=== PATIENT | male | born 1985 | race Caucasian/White ===

== ENCOUNTER 2025-03-22 20:00 | Day surgery (SDC) | payer BC, SELFPAY ==
[2025-03-22] VITALS (11 sets, daily range): BP systolic 113–152; BP diastolic 86–113; PULSE 88–110; RESP 16–18; TEMP 36.3–37.1; O2SAT 96–99; BMI 28.3
--- NOTE | 2025-03-22 21:00 | EX.ED.DYSGE1 ---
HPI History of Present Illness Chief Complaint: Foreign Body Informant: patient Onset/Context/Timing Onset: Hours (2.5) Context: Sudden Onset Timing: Continuous Quality: Dull Location: Mid chest Worsened by: Nothing Relieved by: Nothing Narrative Narrative: Patient presents with esophageal food impaction that occurred approximately 2 and half hours prior to arrival. Patient states he was eating a steak and felt like something got stuck. Patient states he tried drinking water with no relief. Patient states he tried drinking carbonated beverages with no improvement. Patient states everything he tries to eat he vomits back up. Patient denies any hematemesis or coffee-ground emesis. Patient denies any diarrhea, melena, or hematochezia. Patient admits to some pain in his mid chest where he thinks the food is stuck. Patient states nothing makes it better and nothing makes it worse. Patient denies any shortness of breath. Patient denies any cough. [facility] Medical History (Updated 03/22/25 @ 22:[address] Devon Saravia DO) Hypercholesterolemia Hypertension Home Medications ?Medication ?Instructions ?Recorded ?Last Taken ?Type losartan 100 mg tablet 100 mg PO DAILY 03/22/25 Unknown History rosuvastatin 5 mg tablet (Crestor) 5 mg PO DAILY 03/22/25 Unknown History Allergy/AdvReac Type Severity Reaction Status Date / Time No Known Allergies Allergy Verified 03/22/25 20:01 Surgical History (Updated 03/22/25 @ 21:[address] Devon Saravia, ) S/P anal fissurectomy Social History Smoking Status: Never smoker ROS ROS ED Constitutional Constitutional ED: Denies chills or fever(s) Eyes Eyes: Denies blurry vision or change in vision ENT ENT ED: Denies rhinorrhea or sore throat Cardiovascular Cardiovascular: Reports chest pain; Denies palpitations Respiratory/Chest Respiratory/Chest: Denies cough or dyspnea Gastrointestinal Gastrointestinal: Reports nausea and vomiting Genitourinary Genitourinary ED: Denies dysuria or hematuria Musculoskeletal Musculoskeletal: Denies back pain or neck pain Integumentary Denies abscess or rash Neurologic Neurologic: Denies headache(s) or weakness Allergic/Immunologic Allergic/Immunologic ED: Denies mouth swelling or urticaria EXAM Physical Exam Const Vital Signs: 03/22/25 20:01 03/22/25 20:01 03/22/25 20:20 Temperature 97.4 F L Temperature Source Temporal Pulse Rate 91 88 Respiratory Rate 18 18 Respiratory Effort Normal Respiratory Pattern Normal Blood Pressure 152/100 H Blood Pressure Mean 117 Pulse Ox 99 99 Oxygen Delivery Method Room Air 03/22/25 21:28 Temperature Temperature Source Pulse Rate 89 Respiratory Rate 18 Respiratory Effort Respiratory Pattern Blood Pressure Blood Pressure Mean Pulse Ox 98 Oxygen Delivery Method Room Air Positive well nourished and well developed General Appearance ED: well developed and NAD HEENT Reports moist mucous membranes Neck supple and no JVD Resp normal respiratory effort and clear to auscultation bilaterally Cardio regular rate and regular rhythm GI non-tender and non-distended Palpation: soft Neuro oriented x3, CN's II-XII intact bilaterally and no sensory deficits noted Sensorium / Orientation: alert Motor Exam: strength 5/5 throughout Psych mental status grossly normal MDM MDM MDM Narrative Medical decision making narrative: Patient was given an injection of glucagon. Treatment and Re-Evaluation :: Patient had no improvement with glucagon. Case was discussed with Dr. Chavez. He will be in to evaluate the patient take the patient for endoscopy. Patient and family understood and were agreeable with the plan. All questions were answered. Discharge Plan Triage Chief Complaint: Foreign Body ED Provider: Devon Saravia Dx/Rx/DC Orders Clinical Impression: Esophageal obstruction due to food impaction, Hypertension Prescriptions: No Action losartan 100 mg tablet 100 mg PO DAILY rosuvastatin [Crestor] 5 mg tablet 5 mg PO DAILY Primary Care Provider: Farshad Garrett Referrals: Farshad Garrett MD [Primary Care Provider] - Print Language: [place]i
--- OUTSIDE RECORDS SUMMARY | 2025-03-22 21:16 | XMS RPT_ITS | CCD ---
Author Organization [facility] Inform ion Partnership [facility] Care Team Providers Care Feed Inspection Supervisor Name Role Phone ZHANNA FLOR Unavailable Unavailable ZHANNA FLOR Unavailable Unavailable Tami CORADO, Dr. Yen Primary Care Provider Tami CORADO, Dr. Yen Attending Provider [phone] Tami CORADO, Dr. Yen Referring Provider [phone] Farshad Garrett Attending Unavailable Farshad Garrett Primary Care Unavailable Farshad Garrett Referring Unavailable Farshad Garrett Attending Unavailable Farshad Garrett Primary Care Unavailable Problems Problem Classification Problem Date Documented Da te Episodic/Chronic Essential hypertension (1 source) Essential (primary) hypertension; Translations: [Essential (primary) hypertension] Onset: 03-10-2025 Chronic Unclassified (1 source) Unknown / UNK(Unknown) Onset: 08-15-2017 Results Test Name Value Interpretation Reference Range Facility Anion gap in Serum or Plasma Ordered By: Farshad Garrett on 03-05-2025 Anion gap [Moles/Vol] 14 mmol/L 5-15 [facility] BUN/creatinine ratioOrdered By: Farshad Garrett on 03-05-2025 Urea nitrogen/Creatinine [Mass ratio] 10.4 mg/mg 10- [facility] Bilirubin, totalOrdered By: Farshad Garrett on 03-05-2025 Bilirubin [Mass/Vol] 0.86 mg/dL 0.00-1.30 [facility] Calculated very low density lipoprotein (VLDL) cholesterol measurementOrdered By: Farshad Garrett on 03-05-2025 Calculated very low density lipoprotein (VLDL) cholesterol measurement 12 mg/dL -40 [facility] Carbon dioxide, total [Moles /volume] in Central venous bloodOrdered By: Farshad Garrett on 03-05-2025 CO2 [Moles/Vol] 22.9 mmol/L 21.0-32.0 [facility] Chloride assayOrdered By: Jori Garrett on 03-05-2025 Chloride [Moles/Vol] 102 mmol/L 98-108 [facility] Comprehensive Metabolic Prof ilon 03-05-2025 Albumin [Mass/Vol] 4.9 g/dL Normal 3.5-5.0 [facility] Comment on above: Performed By: #### L 500.4100, L500.4050 #### [facility] [address] [place], [address] Albumin/Globulin [Mass ratio] 1.8 {ratio} Normal 0.9-2.4 [facility] Comment on above: Performed By: #### L 500.4100, L500.4050 #### [facility] [address] [place], [address] ALK PHOS 55 U/L Normal 40-129 [facility] Comment on above: Performed By: #### L 500.4100, L500.4050 #### [facility] [address] [place], [address] ALT [Catalytic activity/Vol] 59 U/L High <=46 [facility] Comment on above: Performed By: #### L 500.4100, L500.4050 #### [facility] [address] [place], [address] AST [Catalytic activity/Vol] 55 U/L High <=37 [facility] Comment on above: Performed By: #### L 500.4100, L500.4050 #### [facility] [address] [place], [address] Bilirubin [Mass/Vol] 0.86 mg/dL Normal 0.00-1.30 [facility] Comment on above: Performed By: #### L 500.4100, L500.4050 #### [facility] [address] [place], [address] BUN/CRE 10.4 RATIO Normal 10-20 [facility] Comment on above: Performed By: #### L 500.4100, [id number] #### [facility] [address] [place], [address] Calcium [Mass/Vol] 9.7 mg/dL Normal 7.6-11.0 [facility] Comment on above: Performed By: #### L 500.4100, [id number] #### [facility] [address] [place], [address] Chloride [Moles/Vol] 102 mmol/L Normal 98-108 [facility] Comment on above: Performed By: #### L 500.4100, [id number] #### [facility] [address] [place], [address] CO2 [Moles/Vol] 22.9 mmol/L Normal 21.0-32.0 [facility] Comment on above: Performed By: #### L 500.4100, [id number] #### [facility] [address] [place], [address] Creatinine [Mass/Vol] 0.79 mg/dL Normal 0.70-1.20 [facility] Comment on above: Performed By: #### L 500.4100, [id number] #### [facility] [address] [place], [address] GAP 14 Normal 5-15 [facility] Comment on above: Performed By: #### L 500.4100, [id number] #### [facility] [address] [place], [address] GFR/1.73 sq M.predicted among non-blacks MDRD (S/P/Bld) [Vol rate/Area] 114 mL/min/{1.73_m2} Normal >60 [facility] Comment on above: Result Comment: mL/m in/1.73m2 CKD-EPI Creatinine Equation (2020) Performed By: #### L 500.4100, L500.4050 #### [facility] [address] [place], [address] Globulin (S) [Mass/Vol] 2.7 g/dL Normal 2.2-4.2 [facility] Comment on above: Performed By: #### L 500.4100, [id number] #### [facility] [address] [place], [address] Glucose [Mass/Vol] 99 mg/dL Normal 70-99 [facility] Comment on above: Performed By: #### L 500.4100, [id number] #### [facility] [address] [place], [address] Potassium [Moles/Vol] 4.5 mmol/L Normal 3.3-5.1 [facility] Comment on above: Performed By: #### L 500.4100, [id number] #### [facility] [address] [place], [address] Sodium [Moles/Vol] 138 mmol/L Normal 133-145 [facility] Comment on above: Performed By: #### L 500.4100, [id number] #### [facility] [address] [place], [address] T PROT 7.6 g/dL Normal 5.9-8.4 [facility] Comment on above: Performed By: #### L 500.4100, [id number] #### [facility] [address] [place], [address] Urea nitrogen [Mass/Vol] 8 mg/dL Normal 4-19 [facility] Comment on above: Performed By: #### L 500.4100, L500.4050 #### [facility] [address] [place], [address] Glomerular filtration rate ( GFR) estimation/1.73 sq m using serum, plasma, or whole bOrdered By: Farshad Garrett on 03-05-2025 GFR/1.73 sq M.predicted among non-blacks MDRD (S/P/Bld) [Vol rate/Area] 114 mL/min/{1.73_m2} >60 [facility] Comment on above: mL/min/1.73m2 CKD-EP I Creatinine Equation (2020) LDL calc ser/plasOrdered By: Farshad Garrett on 03-05-2025 Cholesterol in LDL [Mass/Vol] 100 mg/dL [facility] Comment on above: Plyexavady=949-868 m g/dL & Higher Zoem=640 mg/dL or greater Laboratory - Chemistry and C hemistry - challengeOrdered By: Farshad Garrett on 03-05-2025 AST [Catalytic activity/Vol] 55 U/L High <38 [facility] Lipid Profileon 03-05-2025 CHOL:HDL 2.46 Normal [facility] Comment on above: Performed By: #### L 500.4100, L500.4050 #### [facility] [address] [place], [place], [address] Cholesterol [Mass/Vol] 188 mg/dL Normal <=200 [facility] Comment on above: Result Comment: Chol esterol level, Desirable <200 mg/dL Borderline high cholesterol 200-239 mg/dL High cholesterol >=240 mg/dL Recommendations of the NCEP Adult Treatment Panel for the following risk-cutoff thresholds for the [place] population. Performed By: #### L 500.4100, L500.4050 #### [facility] [address] [place], [address] Cholesterol in HDL [Mass/Vol] 76 mg/dL Normal [facility] Comment on above: Result Comment: Neda onal Cholesterol Education Program (NCEP) guidelines: <40 mg/dL: Low HDL-cholesterol (major risk factor for CHD) >= 60 mg/dL: High HDL-cholesterol (negative risk factor for CHD) HDL-cholesterol is affected by a number of factors, e.g. smoking, exercise, hormones, sex and age. Performed By: #### L 500.4100, L500.4050 #### [facility] [address] [place], [address] Cholesterol in LDL [Mass/Vol] 100 mg/dL Normal [facility] Comment on above: Result Comment: Bord vialmg=151-484 mg/dL Higher Yhch=119 mg/dL or greater Performed By: #### L 500.4100, L500.4050 #### [facility] [address] [place], [address] Cholesterol in VLDL [Mass/Vol] 12 mg/dL Normal 5-40 [facility] Comment on above: Performed By: #### L 500.4100, L500.4050 #### [facility] [address] [place], [address] Triglyceride [Mass/Vol] 60 mg/dL Normal [facility] Comment on above: Result Comment: The drugs N-Acetylcysteine and Metamizole may falsely depress this assay. Normal range: <150 mg/dL Borderline High: 150-199 mg/dL High: 200-499 mg/dL Very High: >500 mg/dL Performed By: #### L 500.4100, L500.4050 #### [facility] [address] [place], [address] Potassium measurement (mass/ volume)Ordered By: Farshad Garrett on 03-05-2025 Potassium (Unsp spec) [Mass/Vol] 4.5 mmol/L 3.3-5.1 [facility] Screening total cholesterol/ high density lipoprotein (HDL) cholesterol ratioOrdered By: Farshad Garrett on 03-05-2025 Cholesterol.total/Chol esterol in HDL [Mass ratio] 2.46 {ratio} [facility] Serum creatinine measurement (mass/volume)Ordered By: Farshad Garrett on 03-05-2025 Creatinine [Mass/Vol] 0.79 mg/dL 0.70-1.20 [facility] Serum globulin measurementOr dered By: Farshad Garrett on 03-05-2025 Globulin (S) [Mass/Vol] 2.7 g/dL 2.2-4.2 [facility] Serum glucose measurement (m ass/volume)Ordered By: Farshad Garrett on 03-05-2025 Glucose [Mass/Vol] 99 mg/dL 70-99 [facility] Serum or plasma alanine mirza otransferase (ALT) measurementOrdered By: Farshad Garrett on 03-05-2025 ALT [Catalytic activity/Vol] 59 U/L High <47 [facility] Serum or plasma albumin tatyana urement (mass/volume)Ordered By: Farshad Garrett on 03-05-2025 Albumin [Mass/Vol] 4.9 g/dL 3.5-5.0 [facility] Serum or plasma albumin/glob ulin mass ratioOrdered By: Farshad Garrett on 03-05-2025 Albumin/Globulin [Mass ratio] 1.8 {ratio} 0.9-2.4 [facility] Serum or plasma alkaline fernando sphatase measurementOrdered By: Farshad Garrett on 03-05-2025 ALP [Catalytic activity/Vol] 55 U/L 40-129 [facility] Serum or plasma calcium tatyana urement (mass/volume)Ordered By: Farshad Garrett on 03-05-2025 Calcium [Mass/Vol] 9.7 mg/dL 7.6-11.0 [facility] Serum or plasma cholesterol in HDL measurement (mass/volume)Ordered By: Farshad Garrett on 03-05-2025 Cholesterol in HDL [Mass/Vol] 76 mg/dL >40 [facility] Comment on above: National Cholesterol Education Program (NCEP) guidelines:<40 mg/dL: Low HDL-cholesterol (major risk factor for CHD)>= 60 mg/dL: High HDL-cholesterol (negative risk factor for CHD)HDL-cholesterol is affected by a number of factors, e.g. smoking, exercise, hormones, sex and age. Serum or plasma cholesterol measurement (mass/volume)Ordered By: Farshad Garrett on 03-05-2025 Cholesterol [Mass/Vol] 188 mg/dL <201 [facility] Comment on above: Cholesterol level, D esirable <200 mg/dLBorderline high cholesterol 200-239 mg/dLHigh cholesterol >=240 mg/dLRecommendations of the NCEP Adult Treatment Panel for the following risk-cutoff thresholds for the [place] population. Serum or plasma urea nitroge n measurement (mass/volume)Ordered By: Farshad Garrett on 03-05-2025 Urea nitrogen [Mass/Vol] 8 mg/dL 4-19 [facility] Sodium levelOrdered By: Farshad Garrett on 03-05-2025 Sodium [Moles/Vol] 138 mmol/L 133-145 [facility] Total proteinOrdered By: Jacklyn Garrett on 03-05-2025 Protein [Mass/Vol] 7.6 g/dL 5.9-8.4 [facility] Triglycerides measurementOrd ered By: Farshad aGrrett on 03-05-2025 Triglyceride [Mass/Vol] 60 mg/dL <199 [facility] Comment on above: The drugs N-Acetylcy steine and Metamizole may falsely depress this assay. Normal range: <150 mg/dLBorderline High: 150-199 mg/dLHigh: 200-499 mg/dLVery High: >500 mg/dL Comprehensive Metabolic Prof ilon 08-25-2024 Albumin [Mass/Vol] 4.0 g/dL Normal 3.2-5.0 [facility] Comment on above: Performed By: #### L 500.4100, L500.4050 #### [facility] [address] [place], [address] Albumin/Globulin [Mass ratio] 1.1 {ratio} Normal 0.9-2.4 [facility] Comment on above: Performed By: #### L 500.4100, L500.4050 #### [facility] [address] [facility] [place], [address] ALK P 63 U/L Normal 45-117 [facility] Comment on above: Performed By: #### L 500.4100, L500.4050 #### [facility] [address] [facility] [place], [address] ALT [Catalytic activity/Vol] 62 U/L High 16-61 [facility] Comment on above: Performed By: #### L 500.4100, L500.4050 #### [facility] [address] [place], [address] AST [Catalytic activity/Vol] 57 U/L High 15-37 [facility] Comment on above: Performed By: #### L 500.4100, L500.4050 #### [facility] [address] [place], [address] Bilirubin [Mass/Vol] 0.60 mg/dL Normal 0.20-1.00 [facility] Comment on above: Result Comment: For patients on eltrombopag therapy, use of [place] TBIL is not recommended. Performed By: #### L 500.4100, L500.4050 #### [facility] [address] [place], [address] BUN/CRE 10.7 RATIO Normal 10-20 [facility] Comment on above: Performed By: #### L 500.4100, L500.4050 #### [facility] [address] [place], [address] CA,Total 9.0 mg/dL Normal 8.5-10.1 [facility] Comment on above: Performed By: #### L 500.4100, L500.4050 #### [facility] [address] [place], [address] Chloride [Moles/Vol] 106 mmol/L Normal 98-107 [facility] Comment on above: Performed By: #### L 500.4100, L500.4050 #### [facility] [address] [place], [address] CO2 [Moles/Vol] 26.0 mmol/L Normal 21.0-32.0 [facility] Comment on above: Performed By: #### L 500.4100, L500.4050 #### [facility] [address] [place], [address] Creatinine [Mass/Vol] 0.93 mg/dL Normal 0.70-1.30 [facility] Comment on above: Result Comment: The validity of the calculated GFR GFRAA in patients over 70 years has not been determined. Clinical correlation is essential. Performed By: #### L 500.4100, L500.4050 #### [facility] [address] [place], [address] EST GFR - AA 115 mL/min Normal >60 [facility] Comment on above: Result Comment: Afri can Lebanese GFR Calc Performed By: #### L 500.4100, L500.4050 #### [facility] [address] [place], [address] GAP 5 Normal 5-15 [facility] Comment on above: Performed By: #### L 500.4100, L500.4050 #### [facility] [address] [place], [address] GFR/1.73 sq M.predicted among non-blacks MDRD (S/P/Bld) [Vol rate/Area] 95 mL/min/{1.73_m2} Normal >60 [facility] Comment on above: Result Comment: Non- GFR Calc Performed By: #### L 500.4100, L500.4050 #### [facility] [address] [place], [address] Globulin (S) [Mass/Vol] 3.6 g/dL Normal 2.2-4.2 [facility] Comment on above: Performed By: #### L 500.4100, L500.4050 #### [facility] [address] [place], [address] Glucose [Mass/Vol] 98 mg/dL Normal 74-106 [facility] Comment on above: Performed By: #### L 500.4100, L500.4050 #### [facility] [address] [place], [address] Potassium [Moles/Vol] 4.2 mmol/L Normal 3.5-5.1 [facility] Comment on above: Performed By: #### L 500.4100, L500.4050 #### [facility] [address] [place], [address] Sodium [Moles/Vol] 138 mmol/L Normal 136-145 [facility] Comment on above: Performed By: #### L 500.4100, L500.4050 #### [facility] [address] [place], [address] T PROT 7.6 g/dL Normal 6.4-8.2 [facility] Comment on above: Performed By: #### L 500.4100, L500.4050 #### [facility] [address] [place], [address] Urea nitrogen [Mass/Vol] 10 mg/dL Normal 04-24 [facility] Comment on above: Performed By: #### L 500.4100, L500.4050 #### [facility] [address] [place], [address] Lipid Profileon 08-25-2024 Cholesterol [Mass/Vol] 183 mg/dL Normal 200 [facility] Comment on above: Result Comment: <200 mg/dL Desirable 200-240 mg/dL Borderline >240 mg/dL High Risk Performed By: #### L 500.4100, L500.4050 #### [facility] [address] [place], [address] Cholesterol in HDL [Mass/Vol] 60 mg/dL Normal [facility] Comment on above: Result Comment: The drugs N-Acetylcysteine and Metamizole may falsely depress this assay. Reference Range HDL <40 mg/dL Low HDL Cholesterol HDL >or= 60 mg/dL High HDL Cholesterol Performed By: #### L 500.4100, L500.4050 #### [facility] [address] [place], [address] Cholesterol in LDL [Mass/Vol] 55 mg/dL Normal 0-130 [facility] Comment on above: Performed By: #### L 500.4100, L500.4050 #### [facility] [address] [place], [address] Cholesterol in VLDL [Mass/Vol] 68 mg/dL High 5-40 [facility] Comment on above: Performed By: #### L 500.4100, L500.4050 #### [facility] [address] [place], [address] Triglyceride [Mass/Vol] 340 mg/dL High [facility] Comment on above: Result Comment: The drugs N-Acetylcysteine and Metamizole may falsely depress this assay. Serum Triglycerides Reference Interval Normal <150 mg/dL Borderline high 150 - 199 mg/dL High 200 - 499 mg/dL Very High > or = 500 mg/dL Performed By: #### L 500.4100, L500.4050 #### [facility] [address] [place], [address] Basophil percentageOrdered B y: Farshad Garrett on 11-02-2023 Chloride [Moles/Vol] 106 mmol/L 98-107 [facility] Cholesterol [Mass/Vol] 249 mg/dL <200 [facility] Comment on above: <200 mg/dL Desirable 200-240 mg/dL Borderline >240 mg/dL High Risk Glucose [Mass/Vol] 98 mg/dL 74-106 [facility] Potassium [Moles/Vol] 4.5 mmol/L 3.5-5.1 [facility] Sodium [Moles/Vol] 139 mmol/L 136-145 [facility] Triglyceride [Mass/Vol] 155 mg/dL <199 [facility] Comment on above: The drugs N-Acetylcy steine and Metamizole may falsely depress this assay.Serum Triglycerides Reference Interval Normal <150 mg/dL Borderline high 150 - 199 mg/dL High 200 - 499 mg/dL Very High > or = 500 mg/dL High density lipoprotein (HD L) measurementOrdered By: Farshad Garrett on 11-02-2023 Cholesterol in HDL (Body fld) [Mass/Vol] 63 mg/dL >40 [facility] Comment on above: The drugs N-Acetylcy steine and Metamizole may falsely depress this assay. Reference Range HDL <40 mg/dL Low HDL Cholesterol HDL >or= 60 mg/dL High HDL Cholesterol Laboratory - Chemistry and C hemistry - challengeOrdered By: Farhsad Garrett on 11-02-2023 CO2 [Moles/Vol] 26.0 mmol/L 21.0-32.0 [facility] Urea nitrogen/Creatinine [Mass ratio] 8.1 mg/mg 10-20 [facility] Low density lipoprotein (LDL ) cholesterol measurementOrdered By: Farshad Garrett on 11-02-2023 Cholesterol in LDL (Body fld) [Moles/Vol] 155 mg/dL 0-130 [facility] No Panel InformationOrdered By: Farshad Garrett on 11-02-2023 Estimated GFR (MDRD) Amer 125 mL/min >60 [facility] Comment on above: GFR Calc Estimated GFR (MDRD) Non-Af Amer 103 mL/min >60 [facility] Comment on above: Non- GFR Calc Serum or plasma calcium tatyana urement (mass/volume)Ordered By: Farshad Garrett on 11-02-2023 Calcium [Mass/Vol] 9.2 mg/dL 8.5-10.1 [facility] Serum or plasma creatinine m easurement (mass/volume)Ordered By: Farshad Garrett on 11-02-2023 Creatinine [Mass/Vol] 0.87 mg/dL 0.70-1.30 [facility] Comment on above: The validity of the calculated GFR & GFRAA in patients over 70 years has not been determined. Clinical correlation is essential. Serum or plasma urea nitroge n measurement (mass/volume)Ordered By: Farshad Garrett on 11-02-2023 Urea nitrogen [Mass/Vol] 7 mg/dL 7-18 [facility] Thin prep Papanicolaou smear with manual screeningOrdered By: Farshad Garrett on 11-02-2023 Thin prep Papanicolaou smear with manual screening 7 5-15 [facility] Very low density lipoprotein (VLDL) cholesterol measurementOrdered By: Farshad Garrett on 11-02-2023 Cholesterol in VLDL Calc [Moles/Vol] 31 mg/dL 5-40 [facility] Basophil percentageOrdered B y: Dr. Garrett on 12-27-2022 Chloride [Moles/Vol] 103 mmol/L 98-107 [facility] Cholesterol [Mass/Vol] 222 mg/dL <200 [facility] Comment on above: <200 mg/dL Desirable 200-240 mg/dL Borderline >240 mg/dL High Risk Glucose [Mass/Vol] 110 mg/dL 74-106 [facility] Comment on above: Fasting Glucose resu lt from 100 to 125 mg/dL suggests IMPAIRED HOMEOSTASIS per A.D.A. criteria. Potassium [Moles/Vol] 4.6 mmol/L 3.5-5.1 [facility] Sodium [Moles/Vol] 139 mmol/L 136-145 [facility] Triglyceride [Mass/Vol] 197 mg/dL <199 [facility] Comment on above: The drugs N-Acetylcy steine and Metamizole may falsely depress this assay.Serum Triglycerides Reference Interval Normal <150 mg/dL Borderline high 150 - 199 mg/dL High 200 - 499 mg/dL Very High > or = 500 mg/dL Laboratory - Chemistry and C hemistry - challengeOrdered By: Dr. Garrett on 12-27-2022 CO2 [Moles/Vol] 28.0 mmol/L 21.0-32.0 [facility] Urea nitrogen/Creatinine [Mass ratio] 8.9 mg/mg 10-20 [facility] No Panel InformationOrdered By: Dr. Garrett on 12-27-2022 Estimated GFR (MDRD) Amer 105 mL/min >60 [facility] Comment on above: GFR Calc Estimated GFR (MDRD) Non-Af Amer 87 mL/min >60 [facility] Comment on above: Non- GFR Calc Serum or plasma calcium tatyana urement (mass/volume)Ordered By: Dr. Garrett on 12-27-2022 Calcium [Mass/Vol] 9.3 mg/dL 8.5-10.1 [facility] Serum or plasma cholesterol in HDL measurement (mass/volume)Ordered By: Dr. Garrett on 12-27-2022 Cholesterol in HDL [Mass/Vol] 49 mg/dL >40 [facility] Comment on above: The drugs N-Acetylcy steine and Metamizole may falsely depress this assay. Reference Range HDL <40 mg/dL Low HDL Cholesterol HDL >or= 60 mg/dL High HDL Cholesterol Serum or plasma cholesterol in VLDL measurement (mass/volume)Ordered By: Dr. Garrett on 12-27-2022 Cholesterol in VLDL [Mass/Vol] 39 mg/dL 5-40 [facility] Serum or plasma creatinine m easurement (mass/volume)Ordered By: Dr. Garrett on 12-27-2022 Creatinine [Mass/Vol] 1.01 mg/dL 0.70-1.30 [facility] Comment on above: The validity of the calculated GFR & GFRAA in patients over 70 years has not been determined. Clinical correlation is essential. Serum or plasma low density lipoprotein (LDL) cholesterol measurement (mass/volume)Ordered By: Dr. Garrett on 12-27-2022 Cholesterol in LDL [Mass/Vol] 134 mg/dL 0-130 [facility] Serum or plasma urea nitroge n measurement (mass/volume)Ordered By: Dr. Garrett on 12-27-2022 Urea nitrogen [Mass/Vol] 9 mg/dL 7-18 [facility] Thin prep Papanicolaou smear with manual screeningOrdered By: Dr. Garrett on 12-27-2022 Thin prep Papanicolaou smear with manual screening 8 5-15 [facility] Basophil percentageon 2021 Chloride [Moles/Vol] 100 mmol/L 98-107 [facility] Work Phone: Cholesterol [Mass/Vol] 228 mg/dL <200 [facility] Work Phone: Comment on above: <200 mg/dL Desirable 200-240 mg/dL Borderline >240 mg/dL High Risk Glucose [Mass/Vol] 105 mg/dL 74-106 [facility] Work Phone: Comment on above: Fasting Glucose resu lt from 100 to 125 mg/dL suggests IMPAIRED HOMEOSTASIS per A.D.A. criteria. Potassium [Moles/Vol] 4.6 mmol/L 3.5-5.1 [facility] Work Phone: Sodium [Moles/Vol] 133 mmol/L 136-145 [facility] Work Phone: [phone] Triglyceride [Mass/Vol] 207 mg/dL [facility] Work Phone: [phone] Comment on above: The drugs N-Acetylcy steine and Metamizole may falsely depress this assay.Serum Triglycerides Reference Interval Normal <150 mg/dL Borderline high 150 - 199 mg/dL High 200 - 499 mg/dL Very High > or = 500 mg/dL Laboratory - Chemistry and C hemistry - challengeon 01-23-2022 CO2 [Moles/Vol] 28.0 mmol/L 21.0-32.0 [facility] Work Phone: [phone] Urea nitrogen/Creatinine [Mass ratio] 11.4 mg/mg 10-20 [facility] Work Phone: [phone] Panel Informationon 01-23 Estimated GFR (MDRD) Amer 101 mL/min >60 [facility] Work Phone: [phone] Comment on above: GFR Calc Estimated GFR (MDRD) Non-Af Amer 84 mL/min >60 [facility] Work Phone: [phone] Comment on above: Non- GFR Calc Serum or plasma calcium tatyana urement (mass/volume)on 01-23-2022 Calcium [Mass/Vol] 8.9 mg/dL 8.5-10.1 [facility] Work Phone: [phone] Serum or plasma cholesterol in HDL measurement (mass/volume)on 01-23-2022 Cholesterol in HDL [Mass/Vol] 54 mg/dL [facility] Work Phone: [phone] Comment on above: The drugs N-Acetylcy steine and Metamizole may falsely depress this assay. Reference Range HDL <40 mg/dL Low HDL Cholesterol HDL >or= 60 mg/dL High HDL Cholesterol Serum or plasma cholesterol in VLDL measurement (mass/volume)on 01-23-2022 Cholesterol in VLDL [Mass/Vol] 41 mg/dL 5-40 [facility] Work Phone: [phone] Serum or plasma creatinine m easurement (mass/volume)on 01-23-2022 Creatinine [Mass/Vol] 1.05 mg/dL 0.70-1.30 [facility] Work Phone: Comment on above: The validity of the calculated GFR & GFRAA in patients over 70 years has not been determined. Clinical correlation is essential. Serum or plasma low density lipoprotein (LDL) cholesterol measurement (mass/volume)on 01-23-2022 Cholesterol in LDL [Mass/Vol] 133 mg/dL 0-130 [facility] Work Phone: Serum or plasma urea nitroge n measurement (mass/volume)on 01-23-2022 Urea nitrogen [Mass/Vol] 12 mg/dL 7-18 [facility] Work Phone: Thin prep Papanicolaou smear with manual screeningon 01-23-2022 Thin prep Papanicolaou smear with manual screening 5 5-15 [facility] Work Phone: CNPNon 06-15-2021 CNPN Telephone ([facility]) RUSTY CUEVA ([id number]) 1985 M Date Time Provider Department 06/15/21 ABIGAIL JOE [facility] During your visit today, we recorded the following information about you: Marcel Oviedo 06/15/2021 11:55 AM Signed Medical record request received from [facility]. Request given to [facility] to fax to [facility]. Allergies As of Date: 06/15/2021 Noted Allergy Reaction RAGWEED POLLEN 11/19/2017 9 - Itching Date Reviewed: 2021 Reviewed by: Nery Rosas Ma - Fully Assessed Reason for Visit: Release Of Medical Records [2017] Prescriptions as of 06/15/2021 - lisinopril (ZESTRIL, PRINIVIL) 20 mg tablet Take 1 tablet by mouth once daily. - docusate sodium (COLACE) 100 mg capsule Take 1 capsule by mouth twice daily. - Ibuprofen 200 mg cap Take 1-2 capsules by mouth every 4 hours as needed (for pain). Problem List As Of Date 06/15/2021 Noted Resolved BMI 27.0-27.9,adult [Z68.27] 01/01/2017 Elevated BP without diagnosis of hypertension [*01/01/2017 08/20/2018 Abnormal PFTs [R94.2] 07/23/2017 03/04/2019 Impaired fasting glucose [R73.01] 07/23/2017 03/04/2019 Essential hypertension [I10] 01/21/2018 Nasal septal deviation [J34.2] Migraine without aura and without status migrai*03/04/2019 Anal fissure [K60.2] 03/02/2020 04/20/2020 Rectal bleeding [K62.5] 03/02/2020 04/20/2020 Former smoker [Z87.891] 03/15/2020 Perirectal abscess [K61.1] 04/13/2020 04/20/2020 Anal abscess [K61.0] 04/13/2020 04/20/2020 Encounter Status:Closed by MARCEL OVIEDO on 06/15/21 [facility] OBSOLETEon 04-03-2021 OBSOLETE Refill ([facility]) RUSTY CUEVA ([id number]) 1985 M Date Time Provider Department 04/03/21 ABIGAIL JOE [facility] During your visit today, we recorded the following information about you: Audrey Galvez Ma 04/04/2021 9:14 AM Signed last ov 03/08/20 Tarah Ramirez APRN.CNP 04/04/2021 9:23 AM Signed Please ask the patient to complete fasting labs and schedule an in office appt. Thanks, Peyton Patient's request for medication has been refused. See reason and notify patient. Refused Prescriptions Disp Refills lisinopril (ZESTRIL, PRINIVIL) 20 mg tablet [Pharmacy Med Name: LISINOPRIL 20 MG TABLET] 90 tablet 1 Sig: TAKE 1 TABLET BY MOUTH EVERY DAY ISSAC: No Refused By: TARAH RAMIREZ Reason for Refusal: A Refill not appropriate Cindy Poe RN 04/04/2021 3:00 PM Signed Called and left VM at [phone] for patient to call back the office. Please relay message below when patient calls back. Qi Langley 04/05/2021 9:33 AM Signed Patient returned call stating he has moved to [place]. Patient states he is going to find a new provider in that area, but is asking if he could get one last refill while he is looking. Please advise. Abigail Joe MD 04/05/2021 2:56 PM Signed Notify patient refill sent-he needs updated lab testing as well (orders were placed yesterday). Last 3 Encounter BP Readings: Date: BP: 2021 122/72 04/20/2020 137/88 04/13/2020 103/63 The following approved medication requests have been transmitted electronically. Signed Prescriptions Disp Refills lisinopril (ZESTRIL, PRINIVIL) 20 mg tablet 90 tablet 0 Sig: Take 1 tablet by mouth once daily. ISSAC: No Authorizing Provider: ABIGAIL JOE Refused Prescriptions Disp Refills lisinopril (ZESTRIL, PRINIVIL) 20 mg tablet [Pharmacy Med Name: LISINOPRIL 20 MG TABLET] 90 tablet 1 Sig: TAKE 1 TABLET BY MOUTH EVERY DAY ISSAC: No Refused By: TARAH RAMIREZ Reason for Refusal: A Refill not appropriate MD Abigail Shrestha MD 04/05/2021 2:56 PM Signed Addended by: ABIGAIL JOE on: 04/05/2021 02:56 PM Modules accepted: Orders Marcel Oviedo 04/06/2021 5:01 PM Signed Left detailed message on VM to notify patient. Advised patient to call the office with any further questions. Allergies As of Date: 04/03/2021 Noted Allergy Reaction RAGWEED POLLEN 11/19/2017 9 - Itching Date Reviewed: 2021 Reviewed by: Nery Rosas Ma - Fully Assessed Reason for Visit: Refill Request [94] Primary Visit Diagnosis:Essential hypertension [I10] Other Visit Diagnoses:Mixed hyperlipidemia [E78.2] Preventative health care [Z00.00] Order(s):BASIC METABOLIC PNL [SQBMP] Order #: [id number] FUTURE LIPID PANEL BASIC [SQLIPB] Order #: [id number] FUTURE lisinopril (ZESTRIL, PRINIVIL) 20 mg tabletTake 1 tablet by mouth once daily.Disp: 90 tabletRfl: 0 Prescriptions as of 04/03/2021 Sig: LISINOPRIL 20 MG TABLET Take 1 tablet by mouth once d* DOCUSATE SODIUM 100 MG CAPSULE Take 1 capsule by mouth twice* Patient not taking: Reported on 2021 IBUPROFEN 200 MG CAPSULE Take 1-2 capsules by mouth ev* Problem List As Of Date 04/03/2021 Noted Resolved BMI 27.0-27.9,adult [Z68.27] 01/01/2017 Elevated BP without diagnosis of hypertension [*01/01/2017 08/20/2018 Abnormal PFTs [R94.2] 07/23/2017 03/04/2019 Impaired fasting glucose [R73.01] 07/23/2017 03/04/2019 Essential hypertension [I10] 01/21/2018 Nasal septal deviation [J34.2] Migraine without aura and without status migrai*03/04/2019 Anal fissure [K60.2] 03/02/2020 04/20/2020 Rectal bleeding [K62.5] 03/02/2020 04/20/2020 Former smoker [Z87.891] 03/15/2020 Perirectal abscess [K61.1] 04/13/2020 04/20/2020 Anal abscess [K61.0] 04/13/2020 04/20/2020 Prescriptions ordered this encounter Disp Refills Start End LISINOPRIL 20 MG TABLET 90 t* 0 04/05/2021 Route: ORAL Sig: Take 1 tablet by mouth once daily. Medications Discontinued During This Encounter Prescriptions - lisinopril (ZESTRIL, PRINIVIL) 20 mg tablet (Discontinued) Take 1 tablet by mouth once daily. Encounter Status:Closed by TARAH RAMIREZ on 04/04/21 Normal [facility] CNOVon 2021 CNOV Office Visit ([facility] ) RUSTY CUEVA ([id number]) 1985 [place] Date Time Provider Department 03/18/21 8:45 AM ALLA GASTELUM [facility] During your visit today, we recorded the following information about you: Temperature Pulse Respiration Blood pressure 96.9 degrees 80/minute 16/minute 122/72 Weight 93.9 kg Alla Gastelum APRN.SENIOR PHYSICIAN 2021 9:12 AM Signed Subjective The history is provided by the patient. No sign language translator was used. HPI Rusty Cueva is a 36 year old male who presents today for CC of sore throat that started in the past 24 hours. He denies any fever, chills, headache, body aches, nasal congestion, rhinorrhea, loss of smell or taste, no nausea, vomiting or diarrhea. He is fully vaccinated. No known exposure to strep or covid. BP 122/72 Pulse 80 Temp 36.1 ?C (96.9 ?F) (Tympanic) Resp 16 Wt 93.9 kg (207 lb) SpO2 96% BMI 28.87 kg/m? Social History Tobacco Use - Smoking status: Former Smoker Packs/day: 1.00 Years: 13.00 Pack years: 13.00 Types: Cigarettes - Smokeless tobacco: Former User Types: Chew Substance Use Topics - Alcohol use: Yes Alcohol/week: 30.0 - 45.0 standard drinks Types: 12 - 18 Cans of Beer (12oz) per week Comment: occasional - Drug use: No PAST MEDICAL HISTORY Diagnosis Date - Abnormal PFTs 2018 Pulmonary/annual f/u PFT's, +FH sarcoid - HTN (hypertension) 2018 Started lisinopril 01/23, borderline BP readings - Impaired fasting glucose 07/23/2017 - Migraine Since age 7, advil PRN, triggers/sleep, perhaps once montly - Nasal septal deviation ENT eval 2018, for sleep study/?surgical options I have confirmed and edited as necessary, the [facility] Review of Systems Constitutional: Negative for chills and fever. HENT: Positive for sore throat. Negative for congestion, ear pain and sinus pain. Respiratory: Negative for cough, sputum production, shortness of breath and wheezing. Cardiovascular: Negative for chest pain. Musculoskeletal: Negative for myalgias. Neurological: Negative for headaches. Objective Physical Exam Vitals and nursing note reviewed. HENT: Head: Normocephalic and atraumatic. Right Ear: Tympanic membrane, ear canal and external ear normal. Left Ear: Tympanic membrane, ear canal and external ear normal. Nose: No mucosal edema or rhinorrhea. Right Sinus: No maxillary sinus tenderness or frontal sinus tenderness. Left Sinus: No maxillary sinus tenderness or frontal sinus tenderness. Mouth/Throat: Pharynx: Uvula midline. Posterior oropharyngeal erythema (mild) present. No pharyngeal swelling, oropharyngeal exudate or uvula swelling. Tonsils: No tonsillar abscesses. Comments: Thick Clear Post Nasal Drainage Cardiovascular: Rate and Rhythm: Normal rate and regular rhythm. Heart sounds: Normal heart sounds. Pulmonary: Effort: Pulmonary effort is normal. Breath sounds: Normal breath sounds. No decreased breath sounds, wheezing, rhonchi or rales. Lymphadenopathy: Head: Right side of head: No submental, submandibular, tonsillar or preauricular adenopathy. Left side of head: No submental, submandibular, tonsillar or preauricular adenopathy. Cervical: No cervical adenopathy. Right cervical: No superficial cervical adenopathy. Left cervical: No superficial cervical adenopathy. ASSESSMENT/PLAN: 1. Sore throat - ICD9: 462, ICD10: J02.9 - suspect viral or seasonal allergies/post nasal drainage - Alere Strep Test negative, no culture pending - Discussed supportive care treatment with fluids, rest and analgesia. - The patient may also use warm salt water gargles, throat lozenges and/or OTC throat spray as needed. - The patient should follow up in one week if symptoms persist or worsen - Call back if drooling, increased temperature, symptoms of dehydration and/or still sick in one week - STREP A MOLECULAR (POC) Zyrtec, flonase - Declined covid testing Medical Decision Making: Problems: Moderate: New problem with uncertain prognosis Risk: Low: Low risk from testing/treatment Medical Decision Making Level: 3 - Low Diagnosis and treatment plan were discussed and questions were answered to the patient's satisfaction. Pt acknowledged understanding of concepts and follow up plan. Specific signs and symptoms that would indicate the need for higher level of care were discussed in detail warranting prompt ER evaluation. TATIANA Wilson APRN.CNP 2021 9:04 AM Signed - suspect viral or seasonal allergies/post nasal drainage - Alere Strep Test negative, no culture pending - Discussed supportive care treatment with fluids, rest and tytlenol or ibuprofen - The patient may also use warm salt water gargles, throat lozenges and/or OTC throat spray as needed. - The patient should follow up in one week if symptoms persist or worsen - Call back if drooling, increased temp (more content not included)... Normal [facility] ANES POSTPROC EVALon 020 ANES POSTPROC EVAL HNO ID: [id number] Author: Sergio Payan Service: ? Author Type: Anesthesiologist Type: Anesthesia Postprocedure Evaluation Filed: 04/13/2020 2:36 PM Note Text: POST ANESTHESIA EVALUATION NOTE : 1985 Procedure Summary Date: 04/13/20 Room / Location: OR06 / AV OR Anesthesia Start: 1328 Anesthesia Stop: 1419 Procedure: ABSCESS IANDD SIMPLE (N/A Anus) Diagnosis: Anal abscess Surgeon: Danny Oseguera Jr. Responsible Provider: Sergio Payan Anesthesia Type: general ASA Status: 3 - Emergent Anesthesia Type: general Last vitals Vitals Value Taken Time BP 139/109 04/13/2020 2:30 PM Temp 36.4 ?C (97.5 ?F) 04/13/2020 2:19 PM Pulse 70 04/13/2020 2:35 PM HR SpO2 71 04/13/2020 2:35 PM Resp 18 04/13/2020 2:35 PM SpO2 94 % 04/13/2020 2:35 PM Vitals shown include unvalidated device data. Post Anesthesia Patient Status Patient Evaluation: PACU. PACU/ICU Patient Condition: stable. Anticipated Disposition: phase 2 then home. Neurological Status: aware and responsive. Pulmonary Status: breathing comfortably on room air Airway Control: returned to baseline unsupported. Cardiovascular Status: stable. Pain Management: clinically adequate - multimodal analgesia pain management approach Postoperative Hydration: acceptable. Intraoperative Events: no significant anesthesia events Post Operative Nausea/Vomiting Status: Anesthetic Observations: no significant anesthetic observations Recommendation: continue current plan of care. SIGNATURE: Sergio Payan MD PATIENT NAME: Rusty Cueva DATE: April 13, 2020 TIME: 2:35 PM CSN: [id number] [facility] ANES PRE-OPon 04-13-2020 ANES PRE-OP HNO ID: [id number] Author: Yg Cook Service: ? Author Type: Physician Type: Anesthesia Preprocedure Evaluation Filed: 04/13/2020 1:27 PM Note Text: ANESTHESIOLOGY DAY OF SURGERY NOTE : 1985 Procedure(s) (LRB): ABSCESS IANDD SIMPLE (N/A) Surgeon(s): Danny Oseguera Jr. Estimated body mass index is 27.2 kg/m? as calculated from the following: Height as of 03/15/20: 180.3 cm (5' 11). Weight as of 03/15/20: 88.5 kg (195 lb). Most recent hematocrit and potassium results: Hematocrit 45.0 03/19/2020 Potassium 4.4 03/19/2020 Relevant Problems CARDIO (+) Essential hypertension (+) Migraine without aura and without status migrainosus, not intractable I - PHYSICAL EVALUATION AIRWAY Patient intubated: No. Mallampati: II. TM distance: >3 FB. Neck ROM: full ROM without neurological symptoms. Mouth opening: adequate. Short neck: no. Thick neck: no DENTAL Dental findings: teeth intact. Additional exam findings: no II - ANESTHESIA PLAN ASA Score: 3; emergent. Anesthetic Plan: general Airway type: LMA NPO Status: adequate Monitoring plan: Standard ASA. Postoperative analgesic plan: parenteral or oral opioids and multimodal analgesia. Anesthetic Risks, Benefits, Alternatives, Personnel Discussed. Consent obtained from: patient. Patient / Surrogate agrees to blood products: yes DNR status not reviewed with patient and/or family prior to surgery. Significant changes in the patient condition since the History and Physical, not otherwise documented in primary service progress note: no. Potential Anesthesia issues that may suggest increased risk of complications or contractions to planned procedure: none. Vitals Value Taken Time BP 124/98 04/13/2020 1:16 PM Pulse Resp 16 04/13/2020 1:16 PM Temp 36.6 ?C (97.8 ?F) 04/13/2020 1:16 PM SpO2 98 % 04/13/2020 1:16 PM Facility-Administered Medications as of 04/13/2020 Medication Dose Route Frequency - lidocaine 10 mg/mL (1 %) 1-2 mg injection (XYLOCAINE) 0.1-0.2 mL INTRADERMAL PRN - lactated ringers infusion 5-30 mL/hr INTRAVENOUS CONTINUOUS - ceFAZolin iv piggyback 2 g in D5W (iso-osmotic) 100 mL (ANCEF) 2 g INTRAVENOUS Pre-Op Once Outpatient Medications as of 04/13/2020 Medication Sig - LIDOCAINE 2% NIFEDIPINE 0.2% OINTMENT (CPD) Apply 1 application to affected area three times daily for 21 days. - docusate sodium (COLACE) 100 mg capsule Take 1 capsule by mouth twice daily. - lisinopril (ZESTRIL, PRINIVIL) 20 mg tablet Take 1 tablet by mouth once daily. - Ibuprofen 200 mg cap Take 1-2 capsules by mouth every 4 hours as needed (for pain). I have interviewed and examined the patient. I have reviewed the medical record and/or the pre-anesthesia evaluation, pertinent labs, and test results. This contains updated information obtained within 48 hours of Surgery/Procedure. SIGNATURE: Yg Cook MD PATIENT NAME: Rusty Cueva DATE: April 13, 2020 TIME: 1:26 PM CSN: [id number] [facility] HISTORY PHYSICALon 0 HISTORY PHYSICAL HNO ID: [id number] Author: Danny Oseguera Jr. Service: General Surgery Author Type: Physician Type: HANDP Filed: 04/13/2020 1:24 PM Note Text: HISTORY AND PHYSICAL EXAMINATION SERVICE DATE: 04/13/2020 SERVICE TIME: 1:05 PM PRIMARY CARE PHYSICIAN: Abigail Joe MD Subjective CHIEF COMPLAINT: Perirectal abscess HPI: This is a 35 year old male who presents with perirectal abscess. 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 Has abscess on exam. Recommended drainage. FUNCTIONAL STATUS: Independent PAST MEDICAL HISTORY Diagnosis Date - Abnormal PFTs 2018 Pulmonary/annual f/u PFT's, +FH sarcoid - HTN (hypertension) 2018 Started lisinopril 01/23, borderline BP readings - Impaired fasting glucose 07/23/2017 - Migraine Since age 7, advil PRN, triggers/sleep, perhaps once montly - Nasal septal deviation ENT eval 2017, for sleep study/?surgical options PAST SURGICAL HISTORY Procedure Laterality Date - ANOSCOPY 2019 with a sphincterectomy - TOOTH EXTRACTION - VASECTOMY 03/28/2019 FAMILY HISTORY Problem Relation Age of Onset - Blood Disease Mother leukemia/older in age-?CLL/essential thrombocytosis, pulmonary embolism once - Diabetes Father - other (Other) Father sarcoidosis - Hypertension Brother - Hyperlipidemia Brother - Diabetes Paternal Grandmother - Skin Cancer Maternal Grandmother melanoma - Coronary Artery Disease Maternal Grandfather Age 64 [place] Social History Tobacco Use - Smoking status: Former Smoker Packs/day: 1.00 Years: 13.00 Pack years: 13.00 Types: Cigarettes - Smokeless tobacco: Former User Types: Chew Substance Use Topics - Alcohol use: Yes Alcohol/week: 30.0 - 45.0 standard drinks Types: 12 - 18 Cans of Beer (12oz) per week Comment: occasional - Drug use: No LIDOCAINE 2% NIFEDIPINE 0.2% OINTMENT (CPD), Apply 1 application to affected area three times daily for 21 days., Disp: 30 g, Rfl: 1 docusate sodium (COLACE) 100 mg capsule, Take 1 capsule by mouth twice daily., Disp: 30 capsule, Rfl: 1 lisinopril (ZESTRIL, PRINIVIL) 20 mg tablet, Take 1 tablet by mouth once daily., Disp: 90 tablet, Rfl: 3 Ibuprofen 200 mg cap, Take 1-2 capsules by mouth every 4 hours as needed (for pain)., Disp: , Rfl: ALLERGIES Allergen Reactions - Ragweed Pollen Itching COMPLETE REVIEW OF SYSTEMS: GENERAL: No weight loss, malaise or fevers RESPIRATORY: Negative for cough, hemoptysis, wheezing, COPD, dyspnea or shortness of breath CARDIOVASCULAR: Negative for chest pain, leg swelling, hypertension, CHF or palpitations Objective PHYSICAL EXAM: Physical Exam Performed: SEPTIC EXAM (For Sepsis/Suspected Sepsis): HEART: RRR without murmur, gallop, or rubs. No ectopy LUNGS: Lungs clear to auscultation. No wheezing, rhonchi, rales EXTREMITIES: No deformities, edema, skin discoloration, clubbing or cyanosis. Good capillary refill. PERIPHERAL PULSES: Normal SKIN: Skin color, texture, turgor normal, no suspicious rashes or lesions The rest of the exam is non-contributory. LUNGS: Lungs clear to auscultation, Good diaphragmatic excursion CARDIAC: Normal S1 and S2; no rubs, murmurs, or gallops ABDOMEN: Abdomen soft, non-tender, BS normal, No masses or organomegaly 1cm abscess at left lateral perianal region The remainder of the physical exam is noncontributory. There were no vitals taken for this visit. DATA: Diagnostic tests reviewed for today's visit: Most recent labs Assessment/Plan periectal abscess here for incision and drainage, surgery explained, answered questions, he and family are agreeable to proceed. SIGNATURE: Danny Oseguera MD PATIENT NAME: Rusty Cueva DATE: April 13, 2020 TIME: 1:05 PM PAGER/CONTACT #: The patient was offered a surgery/procedure at a [facility] facility. The surgeon/proceduralist and patient have discussed in detail the risk of exposure to and/or potential harm posed by the COVID-19 virus with having a surgery/procedure at this time versus the risk of delaying the surgery/procedure. It is not possible to know either the risk of delaying the surgery or procedure or chance of getting an infection with perfect accuracy, but a joint decision was made between the patient and the surgeon/proceduralist to proceed at this time with the scheduled surgery/procedure as indicated on the consent form. As a result of the 12/23/19 order by [facility] of Health Director Joleen Guerrero M.D. to cancel non-essential surgeries that would use PPE, unless special criteria are met, I have reviewed the clinical record for this patient and have determined that the scheduled procedure meets the criteria to go forward because there is a risk of rapidly worsening to severe symptoms if delayed. Normal [facility] HOSPon 04-13-2020 HOSP Patient:Rusty Cueva MRN: Height:5' 11(1.803 m) Weight:195 lb (88.451 kg) Outpatient Medications as of 04/13/20: LIDOCAINE 2% NIFEDIPINE 0.2% OINTMENT (CPD) docusate sodium (COLACE) 100 mg capsule lisinopril (ZESTRIL, PRINIVIL) 20 mg tablet Ibuprofen 200 mg cap Admission/Clinic Administered Medications as of 04/13/20: lidocaine 10 mg/mL (1 %) 1-2 mg injection (XYLOCAINE) lactated ringers infusion ceFAZolin iv piggyback 2 g in D5W (iso-osmotic) 100 mL (ANCEF) Problem List: BMI 27.0-27.9,adult [Z68.27] Essential hypertension [I10] Nasal septal deviation [J34.2] Migraine without aura and without status migrainosus, not intractable [G43.009] Anal fissure [K60.2] Rectal bleeding [K62.5] Former smoker [Z87.891] Perirectal abscess [K61.1] Allergies: Ragweed Pollen Date Verified: 04/13/20 Lab Values Lab Value Units Date High Low POTA* 4.4 mmol/L 03/19/2020 5.1 3.7 SHANNAN* 45.0 % 03/19/2020 51.0 39.0 Progress Notes ([facility]): Danny Oseguera MD 04/13/2020 12:39 PM Signed SURGICAL PROGRESS NOTE [facility] [place] ? Danny Oseguera M.D. [id number] [facility] [address] Date: April 13, 2020 12:21 PM Patient: Rusty Cueva POD#15 s/p colonoscopy, EUA, left lateral open internal sphincterotomy for anal fissure. Reports lump at left lateral site of sphinterotomy.. Pain is after BM. EXAMINATION: Abscess, left lateral area, tender IMPRESSION: Small 1cm abscess PLAN: Recommended drainage. Explained necessity of procedure. Answered questions. OK to proceed. Note generated with the assistance of [facility] ([facility]): Amy Beatty LPN 04/12/2020 12:34 PM Signed Pt called Is scheduled for follow up 04/20 Has had increased swelling and pain after BM Is having regular BM No bleeding in between Taking Advil for pain as needed Asking if he should schedule a sooner appt? Please call [phone] Ok to leave a message Tarah Mackenzie PA-C 04/12/2020 12:46 PM Signed I called and spoke with patient. Has tenderness in perianal area and feels like it is under the skin, but no visible lump. I asked about [employer] message from 04/08/2020 regarding drainage. Patient states that has resolved. Had been doing ok for the first 5 days and now sxs getting worse. Please schedule patient to see Dr. Oseguera this week instead of next week. [place] Bill 04/12/2020 2:19 PM Signed [facility] OPERATIVE NOon 04-13-2020 OPERATIVE NO HNO ID: [id number] Author: Danny Oseguera Jr. Service: General Surgery Author Type: Physician Type: Operative Report Filed: 04/14/2020 8:04 AM Note Text: OPERATIVE/PROCEDURE REPORT LOG ID: [id number] SURGERY/PROCEDURE DATE: 04/13/2020 INCISION/PROCEDURE START TIME: 1:48 PM INCISION CLOSE/PROCEDURE END TIME: 1:58 PM SURGEON(S)/PROCEDURAL IST(S) AND GEARCASE ASSEMBLER(S): Surgeon(s) and Role: * Danny Oseguera Jr. - Primary Physician Shop Service Technician: Navya Roman (Pa) SURGERY/PROCEDURE(S): Incision and drainage of perirectal abscess ANESTHESIA: General SURGERY/PROCEDURE DETAILS: The patient was seen in the preoperative holding area and I had the opportunity of examining the patient, reviewing the patient's chart as well as discussing the plans for surgery today. Anticipated postoperative instructions were reviewed. This patient recently presented to the office with a chief complaint of a perirectal abscess located at the site where the patient had a recent open lateral internal sphincterotomy for refractory posterior anal sphincter. Consent was signed. Huddle was performed of the surgical team using universal protocol. The patient was escorted to the operating room. General anesthesia was induced and the patient was intubated. He was repositioned in Joe Bernardo position using yellowfin's. The perianal tissues was prepped and draped using Betadine. Timeout was performed and I decided to proceed. Abscess was located at the patient's previous site of a left lateral internal sphincterotomy. It was located just underneath the skin. The incision was lengthened for a distance of approximately 1.5 to 2 cm in the distal fashion away from the anal verge. Purulent material was encountered no fistulas were identified. Some of the fluid was collected for cultures. The wound was copiously irrigated with warm normal saline as well as Aricept and additional warm normal saline. The site was packed with a single strand of 1 inch gauze. Sterile dressings were applied. Patient tolerated the procedure well. Sponge counts needle counts instrument counts were correct sign out was performed using universal protocol. Wound classification is clean. Findings and surgery was discussed with the patient's spouse via voicemail. PRE-OP/PRE-PROCEDURE DIAGNOSIS: Perirectal abscess POST-OP/POST-PROCEDUR E DIAGNOSIS: Same as Preop ESTIMATED BLOOD LOSS: 0 ml SPECIMENS: Culture swabs of abscess wound IMPLANTABLE DEVICES: None DRAINS: None COMPLICATIONS: None PARTICIPATION IN SURGERY/PROCEDURE: I/primary surgeon/proceduralist performed the procedure with assistance. No qualified resident/fellow was available. PA assisted with positioning, prepping and dressings. SIGNATURE: Danny Oseguera MD PATIENT NAME: Rusty Cueva DATE: April 13, 2020 TIME: 2:04 PM PAGER/CONTACT #: [facility] 04-13-2020 [facility] HNO ID: [id number] Author: Radha Cardoso RN Service: ? Author Type: Registered Nurse Type: Patient Education Filed: 04/13/2020 2:32 PM Note Text: POST OP LEARNING RESPONSE INSTRUCTION PROVIDED TO: Patient METHOD OF INSTRUCTION: Individual instruction Written instruction - handouts Verbal instruction PATIENT / FAMILY RESPONSE: Verbalizes understanding of: INFECTION MANAGEMENT-Signs and symptoms of an infection and importance of contacting the physician MEDICAL REGIMEN-Importance of following prescribed medical regimen POST-OPERATIVE INSTRUCTIONS-Correct actions to take to reduce postoperative complications PATIENT SAFETY PRINCIPLES WORSENING CONDITION-Signs and symptoms of a worsening condition that warrant a call to the physician FOLLOW-UP PLAN: Patient instructed to call with any further issues Follow-up with Primary Care SUPPLEMENTAL MATERIAL: None REFERRAL (RECOMMENDATION): None Electronically Signed By: Radha Cardoso RN In Department: [facility] SURGERY [facility] ED HNO ID: [id number] Author: Clair HerreraRn) DIANE Pinto Service: ? Author Type: Registered Nurse Type: Patient Education Filed: 04/13/2020 1:08 PM Note Text: PRE OP LEARNING ASSESSMENT PROCEDURE/SURGERY: SURGERY: IANDD rectal abcess READINESS TO LEARN COGNITIVE ABILITY: Alert and oriented MOTIVATION TO LEARN: Eager Interested FAMILY SUPPORT: High - Very involved in pt care PATIENT LEARNS BEST BY: Written Instruction - Hand-outs Verbal Instruction FACTORS AFFECTING LEARNING: None PHYSICAL LIMITATIONS AFFECTING LEARNING: None Electronically Signed By: Clair Pinto RN In Department: [facility] SURGERY [facility] Wound Culture/Stainon 2019 Wound Culture/Stain Sp. Request/Comment: - Specimen received in anaerobic transport medium. Smear Result - Rare Gram negative bacilli --> ABNORMAL ALERT Few Polymorphonuclear leukocytes Culture Result - Rare enteric cas Critically abnormal [facility] Comment on above: Performed By: #### W CUL ####[facility], [place] [phone] ANES POSTPROC EVALon 020 ANES POSTPROC EVAL HNO ID: [id number] Author: Yg Cook Service: ? Author Type: Physician Type: Anesthesia Postprocedure Evaluation Filed: 03/29/2020 2:57 PM Note Text: POST ANESTHESIA EVALUATION NOTE : 1985 Procedure Summary Date: 03/29/20 Room / Location: OR06 / AV OR Anesthesia Start: 1149 Anesthesia Stop: 1303 Procedures: EXAM UNDER ANESTHESIA RECTAL (N/A Anus) SPHINCTEROTOMY ANAL (N/A Anus) COLONOSCOPY (N/A Bowel Colon) Diagnosis: Anal fissure Rectal bleeding Blood in stool Surgeon: Danny Oseguera Jr. Responsible Provider: Yg Cook Anesthesia Type: general ASA Status: 2 Anesthesia Type: general Last vitals Vitals Value Taken Time BP 103/69 03/29/2020 2:00 PM Temp 36.6 ?C (97.8 ?F) 03/29/2020 2:00 PM Pulse 60 03/29/2020 2:05 PM HR SpO2 71 03/29/2020 2:15 PM Resp 16 03/29/2020 2:05 PM SpO2 98 % 03/29/2020 2:15 PM Vitals shown include unvalidated device data. Post Anesthesia Patient Status Patient Evaluation: PACU. PACU/ICU Patient Condition: stable. Anticipated Disposition: phase 2 then home. Neurological Status: aware and responsive. Pulmonary Status: breathing comfortably on room air Airway Control: returned to baseline unsupported. Cardiovascular Status: stable. Pain Management: clinically adequate - multimodal analgesia pain management approach Postoperative Hydration: acceptable. Intraoperative Events: no significant anesthesia events Post Operative Nausea/Vomiting Status: Anesthetic Observations: no significant anesthetic observations Recommendation: continue current plan of care. SIGNATURE: Yg Cook MD PATIENT NAME: Rusty Cueva DATE: March 29, 2020 TIME: 2:57 PM CSN: [id number] [facility] ANES PRE-OPon 03-29-2020 ANES PRE-OP HNO ID: [id number] Author: Yg Cook Service: ? Author Type: Physician Type: Anesthesia Preprocedure Evaluation Filed: 03/29/2020 12:44 PM Note Text: ANESTHESIOLOGY DAY OF SURGERY NOTE : 1985 Procedure(s) (LRB): EXAM UNDER ANESTHESIA RECTAL (N/A) SPHINCTEROTOMY ANAL (N/A) COLONOSCOPY (N/A) Surgeon(s): Danny Oseguera Jr. Estimated body mass index is 27.2 kg/m? as calculated from the following: Height as of 03/15/20: 180.3 cm (5' 11). Weight as of 03/15/20: 88.5 kg (195 lb). Most recent hematocrit and potassium results: Hematocrit 45.0 03/19/2020 Potassium 4.4 03/19/2020 Relevant Problems CARDIO (+) Essential hypertension (+) Migraine without aura and without status migrainosus, not intractable I - PHYSICAL EVALUATION AIRWAY Patient intubated: No. Mallampati: II. TM distance: >3 FB. Neck ROM: full ROM without neurological symptoms. Mouth opening: adequate. Short neck: no. Thick neck: no DENTAL Dental findings: teeth intact. Additional exam findings: no II - ANESTHESIA PLAN ASA Score: 2 Anesthetic Plan: general Airway type: ETT NPO Status: adequate Monitoring plan: Standard ASA. Postoperative analgesic plan: parenteral or oral opioids and multimodal analgesia. Anesthetic Risks, Benefits, Alternatives, Personnel Discussed. Consent obtained from: patient. Patient / Surrogate agrees to blood products: yes DNR status not reviewed with patient and/or family prior to surgery. Significant changes in the patient condition since the History and Physical, not otherwise documented in primary service progress note: no. Potential Anesthesia issues that may suggest increased risk of complications or contractions to planned procedure: none. Vitals Value Taken Time BP 127/89 03/29/2020 11:00 AM Pulse 68 03/29/2020 11:00 AM Resp 18 03/29/2020 11:00 AM Temp 36.3 ?C (97.3 ?F) 03/29/2020 11:00 AM SpO2 99 % 03/29/2020 11:00 AM Facility-Administered Medications as of 03/29/2020 Medication Dose Route Frequency - [COMPLETED] acetaminophen 1,000 mg tab(s) (TYLENOL) 1,000 mg ORAL Pre-Op Once - [COMPLETED] promethazine 12.5 mg tab(s) (PHENERGAN) 12.5 mg ORAL Pre-Op Once - lidocaine 10 mg/mL (1 %) 1-2 mg injection (XYLOCAINE) 0.1-0.2 mL INTRADERMAL PRN - [COMPLETED] cefTRIAXone 2 g in D5W 100 mL MB+ (ROCEPHIN) 2 g INTRAVENOUS Pre-Op Once - [COMPLETED] metroNIDAZOLE iv piggyback 500 mg in NaCl (iso-osmotic) 100 mL (FLAGYL) 500 mg INTRAVENOUS Pre-Op Once - NaCl 0.9% iv infusion 75 mL/hr INTRAVENOUS CONTINUOUS Outpatient Medications as of 03/29/2020 Medication Sig - Ibuprofen 200 mg cap Take 1-2 capsules by mouth every 4 hours as needed (for pain). I have interviewed and examined the patient. I have reviewed the medical record and/or the pre-anesthesia evaluation, pertinent labs, and test results. This contains updated information obtained within 48 hours of Surgery/Procedure. SIGNATURE: Yg Coko MD PATIENT NAME: Rusty Cueva DATE: March 29, 2020 TIME: 12:44 PM CSN: [id number] [facility] OPERATIVE NOon 03-29-2020 OPERATIVE NO HNO ID: [id number] Author: Danny Oseguera Jr. Service: General Surgery Author Type: Physician Type: Operative Report Filed: 03/30/2020 9:01 AM Note Text: OPERATIVE/PROCEDURE REPORT LOG ID: [id number] SURGERY/PROCEDURE DATE: 03/29/2020 INCISION/PROCEDURE START TIME: 12:08 PM INCISION CLOSE/PROCEDURE END TIME: 12:42 PM SURGEON(S)/PROCEDURAL IST(S) AND GEARCASE ASSEMBLER(S): Surgeon(s) and Role: * Danny Oseguera Jr. - Primary Physician Shop Service Technician: Tarah Mackenzie (Pa) SURGERY/PROCEDURE(S): Intraoperative colonoscopy Anal exam under anesthesia Left lateral internal sphincterotomy Bilateral pudendal (regional) nerve block with Exparel ANESTHESIA: General SURGERY/PROCEDURE DETAILS: The patient was seen in the preoperative holding area and I had the opportunity reviewing the patient's chart as well as discussing plans for surgery today with this patient. He has been scheduled for an intraoperative colonoscopy due to recurrent recalcitrant bouts of rectal bleeding with bowel movements. He is also been scheduled for an anal exam under anesthesia with anticipated lateral internal sphincterotomy due to a diagnosis of a posterior anal fissure that has been refractory to conservative management. As part of the conservative management we have attempted to treat this nonoperatively with hydration, stool softeners, sitz bath's as well as nifedipine lidocaine ointment. Despite several cycles of this method, the patient still continues to report anal bleeding. The bleeding is enough to stain the commode water red. The surgery today was explained in great detail to the patient including the risks and benefits of the procedure. All questions that the patient had were discussed to his satisfaction. Consent was signed. Huddle was performed of the surgical team using universal protocol. The patient was escorted to the operating room with the patient was placed in the supine position. Following adequate intubation and induction of general tracheal anesthesia, the patient was turned over successfully and very safely into the prone jackknife position. This was done with a significant amount of supportive assistance by the operating room staff. Once the patient was safely positioned, a timeout was performed and we proceeded with the intraoperative colonoscopic examination. Please refer to the detailed computer-generated colonoscopy report for photographs as well as operative findings. Basically the patient not found to have any type of masses or polyps in the colon. The patient was found incidentally to have nonthrombosed, nonbleeding, non-prolapsed small grade 1 internal hemorrhoids. These were felt to be found incidentally and most likely not the source of the patient's rectal bleeding. No biopsies were performed. No polypectomies were performed. Following the conclusion of the intraoperative colonoscopic examination, we then proceeded with the anal exam. The buttock cheeks were spread laterally to expose the anal canal. The anal and gluteal skin was prepped and draped in the usual standard sterile fashion for an anal exam under anesthesia. Another timeout was performed and then I decided to proceed. A Richey retractor was then inserted into the anal canal. It was lubricated nicely. The small hemorrhoids were again identified and again were found incidentally and most likely not the source of the patient's bleeding. No evidence of any fistulas were noted. No signs of any anal pathology was noted except for the following. Examination of the posterior anoderm demonstrated a sentinel pile that has been seen during the rectal examination in the office. Adjacent to this, was a superficial posterior anal fissure. It did not demonstrate any exposure to the underlying sphincter. This was most likely the source of the patient's continued bleeding as previously surmised. Anal dilatation was performed until of 3 finger dilatation was performed with minimal trauma. On the left side of the anal canal, the intersphincteric groove was identified. The internal anal sphincter was identified based upon the intersphincteric groove. A small radial incision was made and a hemostat was deployed into the substance of the muscle. A white band measuring approximately 3 to 4 mm was delivered out of the small incision. It was cut using electrocautery. No bleeding was encountered. The mucosal defect was closed using interrupted Vicryl sutures. Once complete, a bilateral pudendal nerve block was performed using long-acting local anesthesia to provide for postoperative pain control. Additional anesthesia was used to infiltrate the tissues in and around the site of the lateral sphincterotomy. No bleeding was encountered. Gelfoam packing was placed in the anal canal to assist with postoperative bleeding control. Dressings were applied. The patient tolerated the procedure well. Sponge counts needle counts instrument counts were correct. Sign out was performed using universal protocol. Wound classification is clean contaminated. Family was advised regarding the operative findings. Questions were answered. PRE-OP/PRE-PROCEDURE DIAGNOSIS: rectal bleeding POST-OP/POST-PROCEDUR E DIAGNOSIS: Same as Preop ESTIMATED BLOOD LOSS: 0 ml SPECIMENS: None IMPLANTABLE DEVICES: None DRAINS: None COMPLICATIONS: None PARTICIPATION IN SURGERY/PROCEDURE: I/primary surgeon/proceduralist performed the procedure with assistance. No qualified resident/fellow was available. PA assisted with positioning, retraction and dressing application SIGNATURE: Danny Oseguera MD PATIENT NAME: Rusty Cueva DATE: March 29, 2020 TIME: 12:52 PM PAGER/CONTACT #: [facility] 03-29-2020 PT ED HNO ID: [id number] Author: Saniya HerreraRnWhit Benson RN Service: Nursing Author Type: Registered Nurse Type: Patient Education Filed: 03/29/2020 1:14 PM Note Text: POST OP LEARNING RESPONSE INSTRUCTION PROVIDED TO: Patient and Family member METHOD OF INSTRUCTION: Individual instruction Written instruction - handouts PATIENT / FAMILY RESPONSE: Verbalizes understanding of: INFECTION MANAGEMENT-Signs and symptoms of an infection and importance of contacting the physician PAIN MANAGEMENT-Effective strategies to manage pain in addition to pain medication SYMPTOM MANAGEMENT-Correct actions to take to manage symptoms associated with his/her disease/illness WORSENING CONDITION-Signs and symptoms of a worsening condition that warrant a call to the physician WOUND CARE-Correct procedure to perform wound care FOLLOW-UP PLAN: Patient instructed to call with any further issues Follow-up with Primary Care SUPPLEMENTAL MATERIAL: Post op discharge instructions REFERRAL (RECOMMENDATION): None Electronically Signed By: Saniya Benson RN In Department: PROCEDURES [facility] PT ED HNO ID: [id number] Author: Tova HerreraRnWhit Dee RN Service: ? Author Type: Registered Nurse Type: Patient Education Filed: 03/29/2020 11:03 AM Note Text: PRE OP LEARNING ASSESSMENT PROCEDURE/SURGERY: SURGERY: colonoscopy, EUA, sphincterotomy READINESS TO LEARN COGNITIVE ABILITY: Alert and oriented MOTIVATION TO LEARN: Eager FAMILY SUPPORT: Unable to assess - Family not present PATIENT LEARNS BEST BY: Individual Instruction FACTORS AFFECTING LEARNING: None PHYSICAL LIMITATIONS AFFECTING LEARNING: None Electronically Signed By: Tova Dee RN In Department: [facility] SURGERY [facility] ED HNO ID: [id number] Author: Tova HerreraRnWhit Dee RN Service: ? Author Type: Registered Nurse Type: Patient Education Filed: 03/29/2020 10:47 AM Note Text: PRE OP LEARNING ASSESSMENT PROCEDURE/SURGERY: SURGERY: EUA, sphincterotomy, colonoscopy READINESS TO LEARN COGNITIVE ABILITY: Alert and oriented MOTIVATION TO LEARN: Eager FAMILY SUPPORT: Unable to assess - Family not present PATIENT LEARNS BEST BY: Individual Instruction Written Instruction - Hand-outs Verbal Instruction FACTORS AFFECTING LEARNING: None PHYSICAL LIMITATIONS AFFECTING LEARNING: None Electronically Signed By: Tova Dee RN In Department: [facility] SURGERY [facility] NURSING PROGon 03-16-2020 NURSING PROG HNO ID: [id number] Author: Parmjit (Rn) Ar RN Service: Nursing Author Type: Registered Nurse Type: Nursing Progress Note Filed: 03/16/2020 2:44 PM Note Text: PACC Nurse Progress Note History AND Physical: PACC Visit Date: 03/15/2020 Original HANDP Date: N/A ED visit Date: N/A Outside HANDP Scanned Date: N/A Labs Within Last 6 Months: to be completed Imaging Within Last 12 Months: N/A Cardiac Testing: N/A BMI Percentile (PEDS): N/A Risk Assessment: N/A Anesthesia Review: N/A Narrative: N/A Pre-op Considerations: N/A Chart Check: IN PROGRESS-labs ordered-need to be completed Parmjit Joyner RN March 16, 2020 2:43 PM [facility] HOSPon 03-04-2020 HOSP Patient:Rusty Cueva MRN: Height:5' 11(1.803 m) Weight:195 lb (88.451 kg) Outpatient Medications as of 03/29/20: lisinopril (ZESTRIL, PRINIVIL) 20 mg tablet Ibuprofen 200 mg cap Admission/Clinic Administered Medications as of 03/29/20: lidocaine 10 mg/mL (1 %) 1-2 mg injection (XYLOCAINE) metroNIDAZOLE iv piggyback 500 mg in NaCl (iso-osmotic) 100 mL (FLAGYL) NaCl 0.9% iv infusion Problem List: BMI 27.0-27.9,adult [Z68.27] Essential hypertension [I10] Nasal septal deviation [J34.2] Migraine without aura and without status migrainosus, not intractable [G43.009] Anal fissure [K60.2] Rectal bleeding [K62.5] Former smoker [Z87.891] Allergies: Ragweed Pollen Date Verified: 03/29/20 Lab Values Lab Value Units Date High Low POTA* 4.4 mmol/L 03/19/2020 5.1 3.7 SHANNAN* 45.0 % 03/19/2020 51.0 39.0 Progress Notes [facility] Marcel Ivelisse 03/08/2020 11:17 AM Signed [facility] FACTS LAB HOURS: [place] lab is open from 7:30am to 6pm M-, open from 7:30am-5pm on Sunday and open 8am-12pm on Sunday. Closed on Sunday [place] [facility] is open from 7:30am to 5pm Sunday-Sunday, 8am-12pm on Sunday, and closed on Sunday. Routine Lab Orders 45 days after they are entered. If your lab orders , you may be required to wait in the lab while they are reinstated Future Orders are lab tests to be completed on the EXPECTED date. These orders 45 days after the expected date. Standing Orders are recurring orders with an expiration date. The interval will indicate how often the test should be completed. Fasting Lab means nothing to eat or drink (except water) 10-12 hours before your blood is drawn. CT/MRI/IVP: If you have one of these radiology exams ordered along with blood work, please complete the blood work at least 24 hours prior to the scheduled exam. [facility] -- No appointment needed At the [facility], patients 2 years and older can get walk-in medical attention for common health problems including: Cold and flu symptoms Conjunctivitis Ear and throat infections Minor bumps and cuts Seasonal allergies Skin rashes Simple sprains and strains Sinus infections Urinary tract infections Upper respiratory tract infections Locations and Times [facility] - [address] [place] [address] - [address] [place] [address] - Sunday through Sunday 6 AM - 9 PM - Sunday and Sunday 8 AM - 4 PM For Express Care LOCATIONS, HOURS OF OPERATION and CURRENT WAIT TIMES, visit the following link for details. [email or web address]][[email or web address]]=[email or web address] [email or web address] [email or web address] Department Sachin Hartman [facility] - [address] [facility] ([address]), [facility] [phone] Pharmacy Hours: Sunday through Sunday 8 am to 6 pm Opt in to receive text reminders for your appointments with [facility] health specialist today. To opt in, text [phone]. My Chart Schedule My Appointment enables you to view your established primary care provider's open schedule and book an appointment online in real-time. This feature is available in internal medicine, family medicine, or pediatrics at any of our [facility] locations and main campus. Abigail Joe MD 03/08/2020 12:50 PM Signed COMPREHENSIVE PROBLEM EVALUATION Rusty Cueva is a 34 year old male who presents for comprehensive problem evaluation. New concerns today include for preventive care, last seen for physical 03/04/19 by SENIOR PHYSICIAN, recent visits with SENIOR PHYSICIAN for rectal bleeding/pain and planned for surgery w Dr. Oseguera for sphincterotomy for nonresolving symptoms of anal fissure. Compliant w meds and reports no new concerns and no new symptoms. Reports able to lower weight following a higher fiber diet, congratulated. Current Outpatient Medications Medication Sig - Ibuprofen 200 mg cap Take 1-2 capsules by mouth every 4 hours as needed (for pain). - lisinopril (ZESTRIL, PRINIVIL) 20 mg tablet Take 1 tablet by mouth once daily. - Amoxicillin 500 mg tablet Take 1 tablet by mouth twice daily. (Patient not taking: Reported on 03/02/2020 ) - hydrocortisone (ANUSOL-HC) 25 mg suppository 1 Suppository by RECTAL route every 12 hours. No current facility-administered medications for this visit. Allergies:Ragweed Pollen PAST MEDICAL HISTORY Diagnosis Date - Abnormal PFTs 2018 Pulmonary/annual f/u PFT's, +FH sarcoid - HTN (hypertension) 2018 Started lisinopril 01/23, borderline BP readings - Impaired fasting glucose 07/23/2017 - Migraine Since age 7, advil PRN, triggers/sleep - Nasal septal deviation ENT eval 2018, for sleep study/?surgical options PAST SURGICAL HISTORY Procedure Laterality Date - VASECTOMY 03/28/2019 See family status tab for family history. FAMILY HISTORY Problem Relation Age of Onset - Blood Disease Mother leukemia/older in age-?CLL/essential thrombocytosis, pulmonary embolism once - Diabetes Father - other (Other) Father sarcoidosis - Hypertension Brother - Hyperlipidemia Brother - Diabetes Paternal Grandmother - Skin Cancer Maternal Grandmother melanoma - Coronary Artery Disease Maternal Grandfather Age 64 [place] Social History Tobacco Use - Smoking status: Former Smoker Packs/day: 1.00 Years: 13.00 Pack years: 13.00 Types: Cigarettes - Smokeless tobacco: Former User Types: Chew Substance Use Topics - Alcohol use: Yes Alcohol/week: 30.0 - 45.0 standard drinks Types: 12 - 18 Cans of Beer (12oz) per week Comment: occasional - Drug use: No Immunization History Administered Date(s) Administered Influenza Seasonal Inj Quadrivalent Age 3+ 07/23/2017 08/20/2018 Tdap (Age 7+) 02/01/2016 03/08/2016 08/20/2018 ACTIVE PROBLEM LIST Bmi 27.0-27.9,Adult Essential Hypertension Nasal Septal Deviation Migraine Without Aura and Without Status Migrainosus, Not Intractable Anal Fissure Rectal Bleeding REVIEW OF SYSTEMS General: Denies fever, chills, night sweats, or changes in weight. Dermatologic: Denies any new skin conditions, rashes or changing moles. Eyes: Denies recent visual changes. ENT: Denies hearing loss or tinnitus Respiratory: Denies any cough, dyspnea, or wheezing. Cardiovascular: Denies any chest pain with exertion or at rest, palpitations, syncope, or edema. Gastrointestinal: Denies any nausea, vomiting, abdominal pain, heartburn, changes in bowel habit, Denies any rectal bleeding. Genitourinary: Denies Denies problems with urinary stream., Denies dysuria, frequency, urgency, incontinence, erectile dysfunction, hematuria and nocturia. Musculoskeletal: Denies any joint swelling, crepitus, joint pain, or loss of range of motion., Denies back pain. Neurologic: Denies any headaches, tremors, dizziness, vertigo, memory loss, confusion., Denies weakness, numbness or tingling. Psychiatric: Denies any sleeping problems, history of abuse, marital discord., Denies any anxiety or depression. Hematologic/Lymphatic /Immunologic: Denies anemia, bruising, bleeding abnormalities. Endocrine: Denies any heat or cold intolerance, polyuria or polydipsia. OBJECTIVE: PHYSICAL EXAMINATION: BP 122/78 Pulse 73 Ht 180.3 cm (5' 11) Wt 88.9 kg (196 lb) SpO2 98% BMI 27.34 kg/m? Body mass index is 27.34 kg/m?. GENERAL APPEARANCE Well appearing, alert, in no acute distress, well-hydrated, well nourished. SKIN: Skin color, texture, turgor normal, no suspicious rashes or lesions HEAD: No significant findings. EYES: PERRLA, EOMI EARS: External ears normal, canals clear NOSE/SINUSES: Nares normal. Septum midline. OROPHARYNX: Lips, mucosa, and tongue normal, teeth and gums normal and oropharynx normal. NECK: Supple, full range of motion, no lymphadenopathy, normal thyroid, no carotid bruits and no JVD BACK: Back symmetric, Normal curvature, ROM normal, No CVAT. LUNGS: normal pulmonary exam and clear to auscultation and percussion HEART: Normal PMI, Regular rate and rhythm, Normal heart sounds, S1 and S2 and No murmurs. BREASTS: negative ABDOMEN: Soft, Non-tender, No palpable masses, Normal bowel sounds and No hepatosplenomegaly. EXTREMTIES: extremities normal, no deformities, no skin discoloration, no edema, normal pulses bilaterally. NEURO: Awake, alert and oriented x 3, Cranial nerves II-XII grossly intact, Reflexes symmetrical, Normal gait, No involuntary motions., muscle tone normal, muscle strength normal ASSESSMENT/PLAN: 1. ANAL FISSURE - Follows w Gen Sg, w planned surgery 03/29. 2.Bmi 27.0-27.9,Adult/Essen tial Hypertension - Therapeutic lifestyle change (healthy diet, regular aerobic type exercise program, achieving healthy weight/BMI) encouraged. BP's are controlled, continue meds. 3.Migraine Without Aura and Without Status Migrainosus, Not Intractable - Stable pattern, prn otc nsaids. 4.PREVENTIVE CARE - UTD immunizations, discussion had and declines HIV screening, other routine labs orders placed. Counseling on alcohol intake/TG d/w patient. Therapeutic lifestyle change (healthy diet, regular aerobic type exercise program, achieving healthy weight/BMI) encouraged. 6m follow-up. Abigail Joe MD Progress Notes ([facility]): Mayra Lange Coord 03/02/2020 3:54 PM Signed Mayra Lange Coord 03/03/2020 2:00 PM Signed Tried calling patientjonatan to return my call at [phone] option [address] to schedule surgery with Dr Oseguera. Mayra Lange Coord 03/04/2020 9:37 AM Signed 2nd attempt, Tried calling patientjonatan to return my call at [phone] option 5. Mayra Lange Coord 03/04/2020 11:19 AM Signed Patient called back, surgery scheduled for 03/29/[address] Oseguera in [place], discuss with patient covid testing is a requirement and has to be done 3 days prior to surgery. Dr Oseguera or PA, please place covid order. PACC, patient is asking to have a virtual visit instead of in person visit, please advise. Thank you. Terese Lane PA-C 03/04/2020 11:41 AM Signed Order placed in [facility]. Dr. Oseguera already discussed risks of COVID entering HC facility in [place]. Called patient and advised of testing and advised to self-quarantine after testing completed until after his surgery. Patient verbalized an understanding. Normal [facility] Angiotens. Conv Enzon 2016 Angiotens. Conv Enz 22 U/L Normal <52 [facility] Comment on above: Result Comment: Delilah ficially low PEEWEE levels may be found for patients taking PEEWEE inhibitors or after the administration of gadolinium. Performed By: #### H INDERJIT JONR, PEEWEE ####[facility] [address] [place], [place] [phone] Hepatic Functn Panelon 08-15 Alanine aminotransferase (ALT) 37 U/L Normal 10-54 [facility] Comment on above: Performed By: #### H DONTRELL WSR, PEEWEE ####[facility] [address] [place], [place] [phone] Albumin 4.8 g/dL Normal 3.9-4.9 [facility] Comment on above: Performed By: #### H DONTRELL, WSR, PEEWEE ####[facility] [address] [place], [place] [phone] Alkaline phosphatase (ALP) 61 U/L Normal 36-108 [facility] Comment on above: Performed By: #### H DONTRELL WSR, PEEWEE ####[facility], [place] [phone] Aspartate aminotransferase (AST) 28 U/L Normal 14-40 [facility] Comment on above: Performed By: #### H FP, WSR, PEEWEE ####[facility], [place] [phone] Bilirubin (total) 0.8 mg/dL Normal 0.2-1.3 [facility] Comment on above: Performed By: #### H FP, WSR, PEEWEE ####[place] [address] [place] [phone] Bilirubin,Conjugated 0.2 mg/dL High <0.2 [facility] Comment on above: Performed By: #### H FP, WSR, PEEWEE ####[place] [address] [address] [place] [phone] Protein 7.2 g/dL Normal 6.3-8.0 [facility] Comment on above: Performed By: #### H FP, WSR, PEEWEE ####[place] [address], [place] [phone] Sed Rate Westergrenon 2016 Sed Rate Westergren 2 mm/hr Normal 0-15 [facility] Comment on above: Performed By: #### H FP, WSR, PEEWEE ####[place] [address], [place] [phone] XR CHEST 2V FRONTAL/LATon XR CHEST 2V FRONTAL/LAT * * *Final Report* * *DATE OF EXAM: Aug 15 2017 10:54AM FVX [id number] - XR CHEST 2V FRONTAL/LAT / REASON: abnormal pfts * * * * Physician Interpretation * * * * EXAMINATION: CHEST RADIOGRAPH (2 VIEW FRONTAL and LATERAL)Clinical History: abnormal pftsM: [id number]_3Comparison: NoneRESULT:Lines, tubes, and devices: None.Lungs and pleura: No consolidation. No lung mass. No pleural effusion.Cardiomedias tinal silhouette: Normal cardiomediastinal silhouette.Other:IMPR ESSION:No acute radiographic abnormality.Transcrip tionist: PSCB Transcribe Date/Time: Aug 15 2017 12:01PDictated by : LEXY RIVER MDThis examination was interpreted and the report reviewed and electronically signed by: LEXY RIVER MD on Aug 15 2017 12:01PM [id number] IACN Normal [facility] Encounters Encounter Date Encounter Type Care Provider Facility Start: 03-05-2025 End: 03-05-[address] Farshad Garrett MD Work Phone: [facility] Work Phone: Start: 03-05-2025 End: 03-05-[address] Farshad Garrett MD -Laboratory [facility] Start: 03-05-2025 End: 03-05-2025 ambulatory Farshad Garrett Facility:[facility] Start: 08-25-2024 End: 08-25-2024 ambulatory Farshad Garrett Facility:[facility] Start: 11-02-2023 End: 11-02-2023 ambulatory [facility] Work Phone: Start: 11-02-2023 End: 11-02-2023 Patient encounter procedure [facility] Start: 12-27-2022 End: 12-27-2022 ambulatory [facility] Work Phone: Start: 12-27-2022 End: 12-27-2022 Patient encounter procedure [facility] Start: 01-23-2022 End: 01-23-2022 Patient encounter procedure [facility] Start: 08-15-2017 Ambulatory ZHANNA Borges FLOR [facility] Payers Date Payer Category Payer Self-pay [id number] 2024 Unknown [id number] Private Health Insurance [id number] Unknown [id number] Unknown [id number] Social History Date Type [facility]ail [facility] Work Phone: Start: 1985 Sex Assigned At Male [facility] Tobacco smoking stat [facility] Unknown if ever smoked [facility] Work Phone: Progress note 2021 Note Date & Type Note Facility 2021 Note HNO ID: [id number] Author: Alla Gastelum APRN.SENIOR PHYSICIAN Service: ? Author Type: Nurse Practitioner Type: Progress Notes Filed: 2021 9:12 AM Note Text: Subjective The history is provided by the patient. No sign language translator was used. HPI Rusty Cueva is a 36 year old male who presents today for CC of sore throat that started in the past 24 hours. He denies any fever, chills, headache, body aches, nasal congestion, rhinorrhea, loss of smell or taste, no nausea, vomiting or diarrhea. He is fully vaccinated. No known exposure to strep or covid. BP 122/72 Pulse 80 Temp 36.1 ?C (96.9 ?F) (Tympanic) Resp 16 Wt 93.9 kg (207 lb) SpO2 96% BMI 28.87 kg/m? Social History Tobacco Use - Smoking status: Former Smoker Packs/day: 1.00 Years: 13.00 Pack years: 13.00 Types: Cigarettes - Smokeless tobacco: Former User Types: Chew Substance Use Topics - Alcohol use: Yes Alcohol/week: 30.0 - 45.0 standard drinks Types: 12 - 18 Cans of Beer (12oz) per week Comment: occasional - Drug use: No PAST MEDICAL HISTORY Diagnosis Date - Abnormal PFTs 2018 Pulmonary/annual f/u PFT's, +FH sarcoid - HTN (hypertension) 2018 Started lisinopril 01/23, borderline BP readings - Impaired fasting glucose 07/23/2017 - Migraine Since age 7, advil PRN, triggers/sleep, perhaps once montly - Nasal septal deviation ENT eval 2018, for sleep study/?surgical options I have confirmed and edited as necessary, the [facility] Review of Systems Constitutional: Negative for chills and fever. HENT: Positive for sore throat. Negative for congestion, ear pain and sinus pain. Respiratory: Negative for cough, sputum production, shortness of breath and wheezing. Cardiovascular: Negative for chest pain. Musculoskeletal: Negative for myalgias. Neurological: Negative for headaches. Objective Physical Exam Vitals and nursing note reviewed. HENT: Head: Normocephalic and atraumatic. Right Ear: Tympanic membrane, ear canal and external ear normal. Left Ear: Tympanic membrane, ear canal and external ear normal. Nose: No mucosal edema or rhinorrhea. Right Sinus: No maxillary sinus tenderness or frontal sinus tenderness. Left Sinus: No maxillary sinus tenderness or frontal sinus tenderness. Mouth/Throat: Pharynx: Uvula midline. Posterior oropharyngeal erythema (mild) present. No pharyngeal swelling, oropharyngeal exudate or uvula swelling. Tonsils: No tonsillar abscesses. Comments: Thick Clear Post Nasal Drainage Cardiovascular: Rate and Rhythm: Normal rate and regular rhythm. Heart sounds: Normal heart sounds. Pulmonary: Effort: Pulmonary effort is normal. Breath sounds: Normal breath sounds. No decreased breath sounds, wheezing, rhonchi or rales. Lymphadenopathy: Head: Right side of head: No submental, submandibular, tonsillar or preauricular adenopathy. Left side of head: No submental, submandibular, tonsillar or preauricular adenopathy. Cervical: No cervical adenopathy. Right cervical: No superficial cervical adenopathy. Left cervical: No superficial cervical adenopathy. ASSESSMENT/PLAN: 1. Sore throat - ICD9: 462, ICD10: J02.9 - suspect viral or seasonal allergies/post nasal drainage - Alere Strep Test negative, no culture pending - Discussed supportive care treatment with fluids, rest and analgesia. - The patient may also use warm salt water gargles, throat lozenges and/or OTC throat spray as needed. - The patient should follow up in one week if symptoms persist or worsen - Call back if drooling, increased temperature, symptoms of dehydration and/or still sick in one week - STREP A MOLECULAR (POC) Juan Joseyrtecpitoe - Declined covid testing Medical Decision Making: Problems: Moderate: New problem with uncertain prognosis Risk: Low: Low risk from testing/treatment Medical Decision Making Level: 3 - Low Diagnosis and treatment plan were discussed and questions were answered to the patient's satisfaction. Pt acknowledged understanding of concepts and follow up plan. Specific signs and symptoms that would indicate the need for higher level of care were discussed in detail warranting prompt ER evaluation. Alla Gastelum APRN.[facility] Evaluation note Note Date & Type Note Facility Evaluation note No assessment information availa [facility] Work Phone: Reason for referral (narrative) Note Date & Type Note Facility Reason for referral (narrative) No reason for referral information available [facility] Work Phone: Summary Purpose Family History No Family History Records FoundNo Family History Records FoundNo Family History Records FoundNo Family History Records Found Advance Directives No Advanced Directives Records FoundNo Advanced Directives Records FoundNo Advanced Directives Records FoundNo Advanced Directives Records Found Procedure Findings Note HNO ID: [id number] Author: Jenni Bond Service: ? Author Type: Nurse Window Cutter Type: Anesthesia Procedure Notes Filed: 03/29/2020 12:12 PM Note Text: ANESTHESIOLOGY PROCEDURE NOTE Airway General Information Procedure Start Time/Medication Administration: 03/29/2020 11:54 AM Patient location during procedure: OR Staffing DIRECTOR OF QUALITY: Britta Bond Performed by: KAYLEY Indications and Patient Condition Preoxygenated: yes Patient position: sniffing Difficult Mask: No Indications for airway management: anesthesia anesthesia circuit Method: asleep Final Airway Details Final airway type: endotracheal airway Final Endotracheal Airway: ETT Cuffed: yes Successful intubation technique: direct laryngoscopy Endotracheal tube insertion site: oral Blade: Gwyn Blade size: #4 ETT size (mm): 7.5 Measured from: lips Placement verified by: capnometry Cormack-Lehane Classification: grade IIb - view of arytenoids or posterior of glottis only Number of attempts at approach: 1 Airway not d (more content not included)... Note HNO ID: [id number] Author: Zuleika Oseguera Jr. Service: General Surgery Author Type: Physician Type: Brief Op Note Filed: 03/29/2020 12:52 PM Note Text: BRIEF OPERATIVE / PROCEDURE NOTE LOG ID: [id number] SURGERY/PROCEDURE DATE: 03/29/2020 INCISION/PROCEDURE START TIME: 12:08 PM INCISION CLOSE/PROCEDURE END TIME: 12:42 PM SURGEON(S)/PROCEDURALIST(S) AND GEARCASE ASSEMBLER(S): Surgeon(s) and Role: * Danny Oseguera Jr. - Primary Physician Shop Service Technician: Tarah Mackenzie (Pa) SURGERY/PROCEDURE(S): intraoperative colonoscopy, anal exam under anesthesia, left lateral internal sphinterotomy, bilateral pudendal nerve block ANESTHESIA: General FINDINGS: incidental grade I internal hemorrhoids, posterior anal fissure with sentinel pile ESTIMATED BLOOD LOSS: 0 ml SPECIMENS: None COMPLICATIONS: None gel foam packing PRE-OP/PRE-PROCEDURE DIAGNOSIS: rectal bleeding, posterior anal fissure POST-OP/POST-PROCEDURE DIAGNOSIS: Same as Preop SIGNATURE: Danny Oseguera MD PATIENT NAME: Rusty Cueva DATE: March 29, 2020 M (more content not included)... Note HNO ID: [id number] Author: Mandeep Shultz Service: ? Author Type: Nurse Window Cutter Type: Anesthesia Procedure Notes Filed: 04/13/2020 1:46 PM Note Text: ANESTHESIOLOGY PROCEDURE NOTE Airway General Information Patient location during procedure: OR Staffing DIRECTOR OF QUALITY: Dede Shultz Performed by: KAYLEY Indications and Patient Condition Preoxygenated: yes Patient position: sniffing Difficult Mask: No Indications for airway management: anesthesia anesthesia circuit Method: asleep Final Airway Details Final airway type: supraglottic airway Number of attempts at approach: 1 Final Supraglottic Airway: IGEL Size 5 Seal Adequate: yes Airway not difficult SIGNATURE: Dede Shultz, MYRIAM PATIENT NAME: Rusty Cueva DATE: April 13, 2020 TIME: 1:46 PM CSN: [id number] Note HNO ID: [id number] Author: Zuleika Oseguera Jr. Service: General Surgery Author Type: Physician Type: Brief Op Note Filed: 04/13/2020 2:04 PM Note Text: BRIEF OPERATIVE / PROCEDURE NOTE LOG ID: [id number] SURGERY/PROCEDURE DATE: 04/13/2020 INCISION/PROCEDURE START TIME: 1:48 PM INCISION CLOSE/PROCEDURE END TIME: 1:58 PM SURGEON(S)/PROCEDURALIST(S) AND GEARCASE ASSEMBLER(S): Surgeon(s) and Role: * Danny Oseguera Jr. - Primary Physician Shop Service Technician: Navya Roman (Pa) SURGERY/PROCEDURE(S): incision and drainage of perianal abscess ANESTHESIA: General FINDINGS: small superficial perianal abscess ESTIMATED BLOOD LOSS: minimal SPECIMENS: culture of abscess fluid COMPLICATIONS: None single strand of 1/2 inch packing PRE-OP/PRE-PROCEDURE DIAGNOSIS: perianal abscess POST-OP/POST-PROCEDURE DIAGNOSIS: Same as Preop SIGNATURE: Danny Oseguera MD PATIENT NAME: Rusty Cueva DATE: April 13, 2020 TIME: 2:03 PM PAGER/CONTACT #: Additional Source Comments (unrecognized sect ion and content) No Status Records FoundNo Status Records FoundNo Status Records FoundNo Status Records Found INFORMATION SOURCE (unrecogn ized section and content) DATE CREATED AUTHOR 04/02/2018 [facility] DATE CREATED AUTHOR AUTHOR'S ORGANIZ ATION 04/25/2020 [facility] DATE CREATED AUTHOR AUTHOR'S ORGANIZ ATION 10/24/2021 [facility] DATE CREATED AUTHOR AUTHOR'S ORGANIZ ATION 03/11/2025 [facility] Goals (unrecognized section and content) Goals may be documented in a n alternate sectionGoals may be documented in an alternate sectionGoals may be documented in an alternate sectionGoals may be documented in an alternate section Care Teams (unrecognized sec tion and content) Team Status: Active Member Role Status Dates Sachin Joyner Family Provider Active Dr. Farshad Garrett MD Primary Care Provider Active Team Status: Inactive Member Role Status Dates Dr. Farshad Garrett MD Primary Care Provi amadou, Attending Provider, Referring Provider Active Team Status: Inactive Member Role Status Dates Dr. Farshad Garrett MD Primary Care Provider, Attending Provider Active Team Status: Inactive Member Role Status Dates Dr. Farshad Garrett MD Primary Care Provider Active Start: March 05, 2025 End: March 05, 2025 Dr. Farshad Garrett MD Attending Provider Active Start: March 05, 2025 End: March 05, 2025 Dr. Farshad Garrett MD Referring Provider Active Start: March 05, 2025 End: March 05, 2025 FOR RECORDS PERTAINING TO PATIENTS WHO ARE OR HAVE BEEN ENROLLED IN A CHEMICAL DEPENDENCY/SUBSTANCEABUSE PROGRAM, SOME INFORMATION MAY BE OMITTED. This clinical summary was aggregated from multiple sources. Caution should be exercised in using it in the provision of clinical care. This summary normalizes information from multiple sources, and as a consequence, information in this document may materially change the coding, format and clinical context of patient data. In addition, data may be omitted in some cases. CLINICAL DECISIONS SHOULD BE BASED ON THE PRIMARY CLINICAL RECORDS. [facility] [employer] provides no warranty or guarantee of the accuracy or completeness of information in this document.
--- NOTE | 2025-03-22 21:20 | CM.ED ---
Social Work mobile home lot utility worker requested patient bring in a copy of advanced care directives which patient stated he would do. Alexandria Turk, LAMP DECORATOR, HOOP PUNCH OPERATOR HELPER
[2025-03-22] MEDS: Glucagon 1 MG/ML Syringe IV (21:27)
--- OUTSIDE RECORDS SUMMARY | 2025-03-22 22:11 | XMS RPT_ITS | CCD ---
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 Yen Primary Care Provider Tami CORADO, Dr. Yen Attending Provider Tami CORADO, Dr. Yen Referring Provider Farshad Garrett Attending Unavailable Farshad Garrett Primary Care Unavailable Farshda Garrett Referring Unavailable Farshad Garrett Attending Unavailable [...] 03-05-2025 Anion gap [Moles/Vol] 14 mmol/L 5-15 [facility] BUN/creatinine ratioOrdered By: Farshad Garrett on 03-05-2025 Urea nitrogen/Creatinine [Mass ratio] 10.4 mg/mg 10- [facility] Bilirubin, totalOrdered By: Farshad Garrett on 03-05-2025 Bilirubin [Mass/Vol] 0.86 mg/dL 0.00-1.30 [facility] Calculated very low density lipoprotein (VLDL) cholesterol measurementOrdered By: Farshad Garrett on 03-05-2025 Calculated very low density lipoprotein (VLDL) cholesterol measurement 12 mg/dL -[address] [facility] Carbon dioxide, total [Moles /volume] in Central venous bloodOrdered By: Farshad Garrett on 03-05-2025 CO2 [Moles/Vol] 22.9 mmol/L 21.0-32.[address] [facility] Chloride assayOrdered By: Jori Garrett on 03-05-2025 Chloride [Moles/Vol] 102 mmol/L 98-108 [facility] Comprehensive Metabolic Prof ilon 03-05-2025 Albumin [Mass/Vol] 4.9 g/dL Normal 3.5-5.0 [facility] Comment on above: Performed By: #### L 500.4100, L500.4050 #### [facility] [address] [place], [address] Albumin/Globulin [Mass ratio] 1.8 {ratio} Normal 0.9-2.[address] [facility] Comment on above: Performed By: #### L 500.4100, L500.4050 #### [facility] [address] [place], [address] ALK PHOS 55 U/L Normal 40-[address] [facility] Comment on above: Performed By: #### L 500.4100, L500.4050 #### [facility] [address] [place], [address] ALT [Catalytic activity/Vol] 59 U/L High <=[address] [facility] Comment on above: Performed By: #### L 500.4100, L500.4050 #### [facility] [address] [place], [address] AST [Catalytic activity/Vol] 55 U/L High <=[address] [facility] Comment on above: Performed By: #### L 500.4100, L500.4050 #### [facility] [address] [place], [address] Bilirubin [Mass/Vol] 0.86 mg/dL Normal 0.00-1.30 [facility] Comment on above: Performed By: #### L 500.4100, L500.4050 #### [facility] [address] [place], [address] BUN/CRE 10.4 RATIO Normal 10-[address] [facility] Comment on above: Performed By: #### L 500.4100, [id number] #### [facility] [address] [place], [address] Calcium [Mass/Vol] 9.7 mg/dL Normal 7.6-11.0 [facility] Comment on above: Performed By: #### L 500.4100, L500.4050 #### [facility] [address] [place], [address] Chloride [Moles/Vol] 102 mmol/L Normal 98-108 [facility] Comment on above: Performed By: #### L 500.4100, [id number] #### [facility] [address] [place], [address] CO2 [Moles/Vol] 22.9 mmol/L Normal 21.0-32.[address] [facility] Comment on above: Performed By: #### L 500.4100, L500.4050 #### [facility] [address] [place], [address] Creatinine [Mass/Vol] 0.79 mg/dL Normal 0.70-1.20 [facility] Comment on above: Performed By: #### L 500.4100, L500.4050 #### [facility] [address] [place], [address] GAP 14 Normal 5-[address] [facility] Comment on above: Performed By: #### L 500.4100, [id number] #### [facility] [address] [place], [address] GFR/1.73 sq M.predicted among non-blacks MDRD (S/P/Bld) [Vol rate/Area] 114 mL/min/{1.73_m2} Normal >[address] [facility] Comment on above: Result Comment: mL/m in/1.73m2 CKD-EPI Creatinine Equation (2020) Performed By: #### L 500.4100, L500.4050 #### [facility] [address] [place], [address] Globulin (S) [Mass/Vol] 2.7 g/dL Normal 2.2-4.[address] [facility] Comment on above: Performed By: #### L 500.4100, [id number] #### [facility] [address] [place], [address] Glucose [Mass/Vol] 99 mg/dL Normal 70-99 [facility] Comment on above: Performed By: #### L 500.4100, [id number] #### [facility] [address] [place], [address] Potassium [Moles/Vol] 4.5 mmol/L Normal 3.3-5.1 [facility] Comment on above: Performed By: #### L 500.4100, [id number] #### [facility] [address] [place], [address] Sodium [Moles/Vol] 138 mmol/L Normal 133-145 [facility] Comment on above: Performed By: #### L 500.4100, L500.4050 #### [facility] [address] [place], [address] T PROT 7.6 g/dL Normal 5.9-8.[address] [facility] Comment on above: Performed By: #### L 500.4100, [id number] #### [facility] [address] [place], [address] Urea nitrogen [Mass/Vol] 8 mg/dL Normal 4-[address] [facility] Comment on above: Performed By: #### L 500.4100, [id number] #### [facility] [address] [place], [address] Glomerular filtration rate ( GFR) estimation/1.73 sq m using serum, plasma, or whole bOrdered By: Farshad Garrett on 03-05-2025 GFR/1.73 sq M.predicted among non-blacks MDRD (S/P/Bld) [Vol rate/Area] 114 mL/min/{1.73_m2} >[address] [facility] Comment on above: mL/min/1.73m2 CKD-EP I Creatinine Equation (2020) LDL calc ser/plasOrdered By: Farshad Garrett on 03-05-2025 Cholesterol in LDL [Mass/Vol] 100 mg/dL [facility] Comment on above: Icurgtuzxq=600-366 m g/dL & Higher Hdxz=005 mg/dL or greater Laboratory - Chemistry and C hemistry - challengeOrdered By: Farshad Garrett on 03-05-2025 AST [Catalytic activity/Vol] 55 U/L High <[address] [facility] Lipid Profileon 03-05-2025 CHOL:HDL 2.[address] [facility] Comment on above: Performed By: #### L 500.4100, L500.4050 #### [facility] [address] [place], [place], [id number] Cholesterol [Mass/Vol] 188 mg/dL Normal <=200 [facility] Comment on above: Result Comment: Chol esterol level, Desirable <200 mg/dL Borderline high cholesterol 200-239 mg/dL High cholesterol >=240 mg/dL Recommendations of the NCEP Adult Treatment Panel for the following risk-cutoff thresholds for the [place] population. Performed By: #### L 500.4100, L500.4050 #### [facility] [address] [place], [address] Cholesterol in HDL [Mass/Vol] 76 mg/dL Normal [facility] Comment on above: Result Comment: Neda onal Cholesterol Education Program (NCEP) guidelines: <40 mg/dL: Low HDL-cholesterol (major risk factor for CHD) >= 60 mg/dL: High HDL-cholesterol (negative risk factor for CHD) HDL-cholesterol is affected by a number of factors, e.g. smoking, exercise, hormones, sex and age. Performed By: #### L 500.4100, L500.4050 #### [facility] [address] [place], [address] Cholesterol in LDL [Mass/Vol] 100 mg/dL Normal [facility] Comment on above: Result Comment: Bord zsndde=198-719 mg/dL Higher Xwuc=969 mg/dL or greater Performed By: #### L 500.4100, L500.4050 #### [facility] [address] [place], [address] Cholesterol in VLDL [Mass/Vol] 12 mg/dL Normal 5-[address] [facility] Comment on above: Performed By: #### L 500.4100, [id number] #### [facility] [address] [place], [address] Triglyceride [Mass/Vol] 60 mg/dL Normal [facility] Comment on above: Result Comment: The drugs N-Acetylcysteine and Metamizole may falsely depress this assay. Normal range: <150 mg/dL Borderline High: 150-199 mg/dL High: 200-499 mg/dL Very High: >500 mg/dL Performed By: #### L 500.4100, L500.4050 #### [facility] [address] [place], [address] Potassium measurement (mass/ volume)Ordered By: Farshad Garrett on 03-05-2025 Potassium (Unsp spec) [Mass/Vol] 4.5 mmol/L 3.3-5.[address] [facility] Screening total cholesterol/ high density lipoprotein (HDL) cholesterol ratioOrdered By: Farshad Garrett on 03-05-2025 Cholesterol.total/Chol esterol in HDL [Mass ratio] 2.46 {ratio} [facility] Serum creatinine measurement (mass/volume)Ordered By: Farshad Garrett on 03-05-2025 Creatinine [Mass/Vol] 0.79 mg/dL 0.70-1.20 [facility] Serum globulin measurementOr dered By: Farshad Garrett on 03-05-2025 Globulin (S) [Mass/Vol] 2.7 g/dL 2.2-4.[address] [facility] Serum glucose measurement (m ass/volume)Ordered By: Farshad Garrett on 03-05-2025 Glucose [Mass/Vol] 99 mg/dL 70-99 [facility] Serum or plasma alanine mirza otransferase (ALT) measurementOrdered By: Farshad Garrett on 03-05-2025 ALT [Catalytic activity/Vol] 59 U/L High <[address] [facility] Serum or plasma albumin tatyana urement (mass/volume)Ordered By: Farshad Garrett on 03-05-2025 Albumin [Mass/Vol] 4.9 g/dL 3.5-5.0 [facility] Serum or plasma albumin/glob ulin mass ratioOrdered By: Farshad Garrett on 03-05-2025 Albumin/Globulin [Mass ratio] 1.8 {ratio} 0.9-2.[address] [facility] Serum or plasma alkaline fernando sphatase measurementOrdered By: Farshad Garrett on 03-05-2025 ALP [Catalytic activity/Vol] 55 U/L 40-[address] [facility] Serum or plasma calcium tatyana urement (mass/volume)Ordered By: Farshad Garrett on 03-05-2025 Calcium [Mass/Vol] 9.7 mg/dL 7.6-11.0 [facility] Serum or plasma cholesterol in HDL measurement (mass/volume)Ordered By: Farshad Garrett on 03-05-2025 Cholesterol in HDL [Mass/Vol] 76 mg/dL >[address] [facility] Comment on above: National Cholesterol Education Program (NCEP) guidelines:<40 mg/dL: Low HDL-cholesterol (major risk factor for CHD)>= 60 mg/dL: High HDL-cholesterol (negative risk factor for CHD)HDL-cholesterol is affected by a number of factors, e.g. smoking, exercise, hormones, sex and age. Serum or plasma cholesterol measurement (mass/volume)Ordered By: Farshad Garrett on 03-05-2025 Cholesterol [Mass/Vol] 188 mg/dL <201 [facility] Comment on above: Cholesterol level, D esirable <200 mg/dLBorderline high cholesterol 200-239 mg/dLHigh cholesterol >=240 mg/dLRecommendations of the NCEP Adult Treatment Panel for the following risk-cutoff thresholds for the [place] population. Serum or plasma urea nitroge n measurement (mass/volume)Ordered By: Farshad Garrett on 03-05-2025 Urea nitrogen [Mass/Vol] 8 mg/dL 4-[address] [facility] Sodium levelOrdered By: Farshad Garrett on 03-05-2025 Sodium [Moles/Vol] 138 mmol/L 133-145 [facility] Total proteinOrdered By: Jacklyn Garrett on 03-05-2025 Protein [Mass/Vol] 7.6 g/dL 5.9-8.4 [facility] Triglycerides measurementOrd ered By: Farshad Garrett on 03-05-2025 Triglyceride [Mass/Vol] 60 mg/dL <[address] [facility] Comment on above: The drugs N-Acetylcy steine and Metamizole may falsely depress this assay. Normal range: <150 mg/dLBorderline High: 150-199 mg/dLHigh: 200-499 mg/dLVery High: >500 mg/dL Comprehensive Metabolic Prof ilon 08-25-2024 Albumin [Mass/Vol] 4.0 g/dL Normal 3.2-5.0 [facility] Comment on above: Performed By: #### L 500.4100, L500.4050 #### [facility] [address] [place], [address] Albumin/Globulin [Mass ratio] 1.1 {ratio} Normal 0.9-2.[address] [facility] Comment on above: Performed By: #### L 500.4100, L500.4050 #### [facility] [address] [facility] [place], [address] ALK P 63 U/L Normal 45-[address] [facility] Comment on above: Performed By: #### L 500.4100, L500.4050 #### [facility] [address] [facility] [place], [address] ALT [Catalytic activity/Vol] 62 U/L High 16-[address] [facility] Comment on above: Performed By: #### L 500.4100, L500.4050 #### [facility] [address] [place], [address] AST [Catalytic activity/Vol] 57 U/L High 15-[address] [facility] Comment on above: Performed By: #### L 500.4100, L500.4050 #### [facility] [address] [place], [address] Bilirubin [Mass/Vol] 0.60 mg/dL Normal 0.20-1.00 [facility] Comment on above: Result Comment: For patients on eltrombopag therapy, use of Dimension [place] TBIL is not recommended. Performed By: #### L 500.4100, L500.4050 #### [facility] [address] [place], [address] BUN/CRE 10.7 RATIO Normal 10-[address] [facility] Comment on above: Performed By: #### L 500.4100, L500.4050 #### [facility] [address] [place], [address] CA,Total 9.0 mg/dL Normal 8.5-10.[address] [facility] Comment on above: Performed By: #### L 500.4100, L500.4050 #### [facility] [address] [place], [address] Chloride [Moles/Vol] 106 mmol/L Normal 98-107 [facility] Comment on above: Performed By: #### L 500.4100, L500.4050 #### [facility] [address] [place], [address] CO2 [Moles/Vol] 26.0 mmol/L Normal 21.0-32.[address] [facility] Comment on above: Performed By: #### L 500.4100, L500.4050 #### [facility] [address] [place], [address] Creatinine [Mass/Vol] 0.93 mg/dL Normal 0.70-1.30 [facility] Comment on above: Result Comment: The validity of the calculated GFR GFRAA in patients over 70 years has not been determined. Clinical correlation is essential. Performed By: #### L 500.4100, L500.4050 #### [facility] [address] [place], [address] EST GFR - AA 115 mL/min Normal >[address] [facility] Comment on above: Result Comment: Afri can [place] GFR Calc Performed By: #### L 500.4100, L500.4050 #### [facility] [address] [place], [address] GAP 5 Normal 5-[address] [facility] Comment on above: Performed By: #### L 500.4100, L500.4050 #### [facility] [address] [place], [address] GFR/1.73 sq M.predicted among non-blacks MDRD (S/P/Bld) [Vol rate/Area] 95 mL/min/{1.73_m2} Normal >[address] [facility] Comment on above: Result Comment: Non- GFR Calc Performed By: #### L 500.4100, L500.4050 #### [facility] [address] [place], [address] Globulin (S) [Mass/Vol] 3.6 g/dL Normal 2.2-4.[address] [facility] Comment on above: Performed By: #### L 500.4100, L500.4050 #### [facility] [address] [place], [address] Glucose [Mass/Vol] 98 mg/dL Normal 74-106 [facility] Comment on above: Performed By: #### L 500.4100, L500.4050 #### [facility] [address] [place], [address] Potassium [Moles/Vol] 4.2 mmol/L Normal 3.5-5.1 [facility] Comment on above: Performed By: #### L 500.4100, L500.4050 #### [facility] [address] [place], [address] Sodium [Moles/Vol] 138 mmol/L Normal 136-145 [facility] Comment on above: Performed By: #### L 500.4100, L500.4050 #### [facility] [address] [place], [address] T PROT 7.6 g/dL Normal 6.4-8.[address] [facility] Comment on above: Performed By: #### L 500.4100, L500.4050 #### [facility] [address] [place], [address] Urea nitrogen [Mass/Vol] 10 mg/dL Normal 04-[address] [facility] Comment on above: Performed By: #### L 500.4100, L500.4050 #### [facility] [address] [place], [address] Lipid Profileon 08-25-2024 Cholesterol [Mass/Vol] 183 mg/dL Normal 200 [facility] Comment on above: Result Comment: <200 mg/dL Desirable 200-240 mg/dL Borderline >240 mg/dL High Risk Performed By: #### L 500.4100, L500.4050 #### [facility] [address] [place], [address] Cholesterol in HDL [Mass/Vol] 60 mg/dL Normal [facility] Comment on above: Result Comment: The drugs N-Acetylcysteine and Metamizole may falsely depress this assay. Reference Range HDL <40 mg/dL Low HDL Cholesterol HDL >or= 60 mg/dL High HDL Cholesterol Performed By: #### L 500.4100, L500.4050 #### [facility] [address] [place], [address] Cholesterol in LDL [Mass/Vol] 55 mg/dL Normal 0-[address] [facility] Comment on above: Performed By: #### L 500.4100, L500.4050 #### [facility] [address] [place], [address] Cholesterol in VLDL [Mass/Vol] 68 mg/dL High 5-[address] [facility] Comment on above: Performed By: #### L 500.4100, L500.4050 #### [facility] [address] [place], [address] Triglyceride [Mass/Vol] 340 mg/dL High [facility] Comment on above: Result Comment: The drugs N-Acetylcysteine and Metamizole may falsely depress this assay. Serum Triglycerides Reference Interval Normal <150 mg/dL Borderline high 150 - 199 mg/dL High 200 - 499 mg/dL Very High > or = 500 mg/dL Performed By: #### L 500.4100, L500.4050 #### [facility] [address] [place], [address] Basophil percentageOrdered B y: Farshad Garrett on 11-02-2023 Chloride [Moles/Vol] 106 mmol/L 98-107 [facility] Cholesterol [Mass/Vol] 249 mg/dL <200 [facility] Comment on above: <200 mg/dL Desirable 200-240 mg/dL Borderline >240 mg/dL High Risk Glucose [Mass/Vol] 98 mg/dL 74-106 [facility] Potassium [Moles/Vol] 4.5 mmol/L 3.5-5.1 [facility] Sodium [Moles/Vol] 139 mmol/L 136-145 [facility] Triglyceride [Mass/Vol] 155 mg/dL <[address] [facility] Comment on above: The drugs N-Acetylcy steine and Metamizole may falsely depress this assay.Serum Triglycerides Reference Interval Normal <150 mg/dL Borderline high 150 - 199 mg/dL High 200 - 499 mg/dL Very High > or = 500 mg/dL High density lipoprotein (HD L) measurementOrdered By: Farshad Garrett on 11-02-2023 Cholesterol in HDL (Body fld) [Mass/Vol] 63 mg/dL >[address] [facility] Comment on above: The drugs N-Acetylcy steine and Metamizole may falsely depress this assay. Reference Range HDL <40 mg/dL Low HDL Cholesterol HDL >or= 60 mg/dL High HDL Cholesterol Laboratory - Chemistry and C hemistry - challengeOrdered By: Farshad Garrett on 11-02-2023 CO2 [Moles/Vol] 26.0 mmol/L 21.0-32.[address] [facility] Urea nitrogen/Creatinine [Mass ratio] 8.1 mg/mg 10-[address] [facility] Low density lipoprotein (LDL ) cholesterol measurementOrdered By: Farshad Garrett on 11-02-2023 Cholesterol in LDL (Body fld) [Moles/Vol] 155 mg/dL 0-[address] [facility] No Panel InformationOrdered By: Farshad Garrett on 11-02-2023 Estimated GFR (MDRD) Amer 125 mL/min >[address] [facility] Comment on above: GFR Calc Estimated GFR (MDRD) Non-Af Amer 103 mL/min >[address] [facility] Comment on above: Non- GFR Calc Serum or plasma calcium tatyana urement (mass/volume)Ordered By: Farshad Garrett on 11-02-2023 Calcium [Mass/Vol] 9.2 mg/dL 8.5-10.1 [facility] Serum or plasma creatinine m easurement (mass/volume)Ordered By: Farshad Garrett on 11-02-2023 Creatinine [Mass/Vol] 0.87 mg/dL 0.70-1.30 [facility] Comment on above: The validity of the calculated GFR & GFRAA in patients over 70 years has not been determined. Clinical correlation is essential. Serum or plasma urea nitroge n measurement (mass/volume)Ordered By: Farshad Garrett on 11-02-2023 Urea nitrogen [Mass/Vol] 7 mg/dL 7-[address] [facility] Thin prep Papanicolaou smear with manual screeningOrdered By: Farshad Garrett on 11-02-2023 Thin prep Papanicolaou smear with manual screening 7 5-[address] [facility] Very low density lipoprotein (VLDL) cholesterol measurementOrdered By: Farshad Garrett on 11-02-2023 Cholesterol in VLDL Calc [Moles/Vol] 31 mg/dL 5-[address] [facility] Basophil percentageOrdered B y: Dr. Garrett on 12-27-2022 Chloride [Moles/Vol] 103 mmol/L 98-107 [facility] Cholesterol [Mass/Vol] 222 mg/dL <200 [facility] Comment on above: <200 mg/dL Desirable 200-240 mg/dL Borderline >240 mg/dL High Risk Glucose [Mass/Vol] 110 mg/dL 74-106 [facility] Comment on above: Fasting Glucose resu lt from 100 to 125 mg/dL suggests IMPAIRED HOMEOSTASIS per A.D.A. criteria. Potassium [Moles/Vol] 4.6 mmol/L 3.5-5.1 [facility] Sodium [Moles/Vol] 139 mmol/L 136-145 [facility] Triglyceride [Mass/Vol] 197 mg/dL <[address] [facility] Comment on above: The drugs N-Acetylcy steine and Metamizole may falsely depress this assay.Serum Triglycerides Reference Interval Normal <150 mg/dL Borderline high 150 - 199 mg/dL High 200 - 499 mg/dL Very High > or = 500 mg/dL Laboratory - Chemistry and C hemistry - challengeOrdered By: Dr. Garrett on 12-27-2022 CO2 [Moles/Vol] 28.0 mmol/L 21.0-32.[address] [facility] Urea nitrogen/Creatinine [Mass ratio] 8.9 mg/mg 10-[address] [facility] No Panel InformationOrdered By: Dr. Garrett on 12-27-2022 Estimated GFR (MDRD) Amer 105 mL/min >[address] [facility] Comment on above: GFR Calc Estimated GFR (MDRD) Non-Af Amer 87 mL/min >[address] [facility] Comment on above: Non- GFR Calc Serum or plasma calcium tatyana urement (mass/volume)Ordered By: Dr. Garrett on 12-27-2022 Calcium [Mass/Vol] 9.3 mg/dL 8.5-10.1 [facility] Serum or plasma cholesterol in HDL measurement (mass/volume)Ordered By: Dr. Garrett on 12-27-2022 Cholesterol in HDL [Mass/Vol] 49 mg/dL >[address] [facility] Comment on above: The drugs N-Acetylcy steine and Metamizole may falsely depress this assay. Reference Range HDL <40 mg/dL Low HDL Cholesterol HDL >or= 60 mg/dL High HDL Cholesterol Serum or plasma cholesterol in VLDL measurement (mass/volume)Ordered By: Dr. Garrett on 12-27-2022 Cholesterol in VLDL [Mass/Vol] 39 mg/dL 5-[address] [facility] Serum or plasma creatinine m easurement (mass/volume)Ordered By: Dr. Garrett on 12-27-2022 Creatinine [Mass/Vol] 1.01 mg/dL 0.70-1.30 [facility] Comment on above: The validity of the calculated GFR & GFRAA in patients over 70 years has not been determined. Clinical correlation is essential. Serum or plasma low density lipoprotein (LDL) cholesterol measurement (mass/volume)Ordered By: Dr. Garrett on 12-27-2022 Cholesterol in LDL [Mass/Vol] 134 mg/dL 0-[address] [facility] Serum or plasma urea nitroge n measurement (mass/volume)Ordered By: Dr. Garrett on 12-27-2022 Urea nitrogen [Mass/Vol] 9 mg/dL 7-[address] [facility] Thin prep Papanicolaou smear with manual screeningOrdered By: Dr. Garrett on 12-27-2022 Thin prep Papanicolaou smear with manual screening 8 5-[address] [facility] Basophil percentageon 2021 Chloride [Moles/Vol] 100 mmol/L 98-107 [facility] Work Phone: Cholesterol [Mass/Vol] 228 mg/dL <200 [facility] Work Phone: Comment on above: <200 mg/dL Desirable 200-240 mg/dL Borderline >240 mg/dL High Risk Glucose [Mass/Vol] 105 mg/dL 74-106 [facility] Work Phone: Comment on above: Fasting Glucose resu lt from 100 to 125 mg/dL suggests IMPAIRED HOMEOSTASIS per A.D.A. criteria. Potassium [Moles/Vol] 4.6 mmol/L 3.5-5.1 [facility] Work Phone: Sodium [Moles/Vol] 133 mmol/L 136-145 [facility] Work Phone: [phone] Triglyceride [Mass/Vol] 207 mg/dL [facility] Work Phone: [phone] Comment on above: The drugs N-Acetylcy steine and Metamizole may falsely depress this assay.Serum Triglycerides Reference Interval Normal <150 mg/dL Borderline high 150 - 199 mg/dL High 200 - 499 mg/dL Very High > or = 500 mg/dL Laboratory - Chemistry and C hemistry - challengeon 01-23-2022 CO2 [Moles/Vol] 28.0 mmol/L 21.0-32.[address] [facility] Work Phone: [phone] Urea nitrogen/Creatinine [Mass ratio] 11.4 mg/mg 10-[address] [facility] Work Phone: [phone] Panel Informationon 01-23 Estimated GFR (MDRD) Amer 101 mL/min >[address] [facility] Work Phone: [phone] Comment on above: GFR Calc Estimated GFR (MDRD) Non-Af Amer 84 mL/min >[address] [facility] Work Phone: [phone] Comment on above: Non- GFR Calc Serum or plasma calcium tatyana urement (mass/volume)on 01-23-2022 Calcium [Mass/Vol] 8.9 mg/dL 8.5-10.1 [facility] Work Phone: [phone] Serum or plasma cholesterol in HDL measurement (mass/volume)on 01-23-2022 Cholesterol in HDL [Mass/Vol] 54 mg/dL [facility] Work Phone: [phone] Comment on above: The drugs N-Acetylcy steine and Metamizole may falsely depress this assay. Reference Range HDL <40 mg/dL Low HDL Cholesterol HDL >or= 60 mg/dL High HDL Cholesterol Serum or plasma cholesterol in VLDL measurement (mass/volume)on 01-23-2022 Cholesterol in VLDL [Mass/Vol] 41 mg/dL 5-[address] [facility] Work Phone: [phone] Serum or plasma creatinine m easurement (mass/volume)on 01-23-2022 Creatinine [Mass/Vol] 1.05 mg/dL 0.70-1.30 [facility] Work Phone: Comment on above: The validity of the calculated GFR & GFRAA in patients over 70 years has not been determined. Clinical correlation is essential. Serum or plasma low density lipoprotein (LDL) cholesterol measurement (mass/volume)on 01-23-2022 Cholesterol in LDL [Mass/Vol] 133 mg/dL 0-[address] [facility] Work Phone: Serum or plasma urea nitroge n measurement (mass/volume)on 01-23-2022 Urea nitrogen [Mass/Vol] 12 mg/dL 7-[address] [facility] Work Phone: Thin prep Papanicolaou smear with manual screeningon 01-23-2022 Thin prep Papanicolaou smear with manual screening 5 5-[address] [facility] Work Phone: CNPNon 06-15-2021 CNPN Telephone ([facility]) RUSTY CUEVA ([id number]) 1985 M Date Time Provider Department 06/15/21 ABIGAIL JOE [facility] During your visit today, we recorded the following information about you: Marcel Oviedo 06/15/2021 11:55 AM Signed Medical record request received from [facility]. Request given to [facility] to fax to [facility]. Allergies As of Date: 06/15/2021 Noted Allergy [...] Encounter Status:Closed by MARCEL OVIEDO on 06/15/21 [facility] OBSOLETEon 04-03-2021 OBSOLETE [facility] RUSTY CUE[facility] ([id number]) 1985 M Date Time Provider Department 04/03/21 ABIGAIL JOE [facility] During your visit today, we recorded [...] PM Signed Called and left VM at [phone] for patient to call back the office. Please relay message below when patient calls back. Qi Langley 04/05/2021 9:33 AM Signed Patient returned call stating he has moved to [place]. Patient states he is going to find [...] [Z00.00] Order(s):BASIC METABOLIC PNL [SQBMP] Order #: [id number] FUTURE LIPID PANEL BASIC [SQLIPB] Order #: [id number] FUTURE lisinopril (ZESTRIL, PRINIVIL) 20 mg tabletTake [...] Status:Closed by TARAH RAMIREZ on 04/04/21 Normal [facility] CNOVon 2021 CNOV Office Visit ([facility] ) RUSTY CUEVA ([id number]) 1985 [place] Date Time Provider Department 03/18/21 8:45 AM ALLA GASTELUM [facility] During your visit today, we recorded the following information about you: Temperature Pulse Respiration Blood pressure 96.9 degrees 80/minute 16/minute 122/72 Weight 93.9 kg Alla Gastelum APRN.PATTERN ILLUSTRATOR 2021 9:12 AM Signed Subjective The history is provided by the patient. No language and literature division chair was used. HPI Rusty Cueva is a [...] have confirmed and edited as necessary, the [facility] Review of Systems Constitutional: Negative for [...] increased temp (more content not included)... Normal [facility] ANES POSTPROC EVALon 020 ANES POSTPROC EVAL HNO ID: [id number] Author: Sergio Payan Service: ? Author Type: [...] April 13, 2020 TIME: 2:35 PM CSN: [id number] [facility] ANES PRE-OPon 04-13-2020 ANES PRE-OP HNO ID: [id number] Author: Yg Cook Service: ? Author Type: [...] April 13, 2020 TIME: 1:26 PM CSN: [id number] [facility] HISTORY PHYSICALon 0 HISTORY PHYSICAL HNO ID: [id number] Author: Danny Oseguera Jr. Service: General Surgery [...] Coronary Artery Disease Maternal Grandfather Age 64 [place] Social History Tobacco Use - Smoking status: [...] patient was offered a surgery/procedure at a [facility] facility. The surgeon/proceduralist and patient have [...] result of the 12/23/19 order by [facility] of Health Director Joleen Guerrero M.D. to cancel non-essential surgeries that would use PPE, unless special criteria are met, I have reviewed the clinical record for this patient and have determined that the scheduled procedure meets the criteria to go forward because there is a risk of rapidly worsening to severe symptoms if delayed. Normal [facility] HOSPon 04-13-2020 HOSP Patient:Rusty Cueva MRN: Height:5' [...] 45.0 % 03/19/2020 51.0 39.0 Progress Notes ([facility]): Danny Oseguera MD 04/13/2020 12:39 PM Signed SURGICAL PROGRESS NOTE [facility] [place] ? Danny Oseguera M.D. [address] [facility] [address] Date: April 13, 2020 12:21 PM Patient: [...] should schedule a sooner appt? Please call [phone] Ok to leave a message Tarah Mackenzie PA-C 04/12/2020 12:46 PM Signed I called and spoke with patient. Has tenderness in perianal area and feels like it is under the skin, but no visible lump. I asked about Ping4hart message from 04/08/2020 regarding drainage. Patient states that has resolved. Had been doing ok for the first 5 days and now sxs getting worse. Please schedule patient to see Dr. Oseguera this week instead of next week. Alexandria Bill 04/12/2020 2:19 PM Signed Room available in [facility] scheduled for tomorrow. Normal [facility] OPERATIVE NOon 04-13-2020 OPERATIVE NO HNO ID: [id number] Author: Danny Oseguera Jr. Service: General Surgery Author Type: Physician Type: Operative Report Filed: 04/14/2020 8:04 AM Note Text: OPERATIVE/PROCEDURE REPORT LOG ID: [id number] SURGERY/PROCEDURE DATE: 04/13/2020 INCISION/PROCEDURE START TIME: 1:48 PM INCISION CLOSE/PROCEDURE END TIME: 1:58 PM SURGEON(S)/PROCEDURAL IST(S) AND UNDERCUTTER OPERATOR(S): Surgeon(s) and Role: * Danny Oseguera Jr. - Primary Physician Assembler Flexible Leads: Navya Roman (Pa) SURGERY/PROCEDURE(S): Incision and drainage [...] 13, 2020 TIME: 2:04 PM PAGER/CONTACT #: [facility] 04-13-2020 [facility] HNO ID: [id number] Author: Radha Cardoso RN Service: ? Author [...] Signed By: Radha Cardoso RN In Department: [facility] SURGERY [facility] ED HNO ID: [id number] Author: Clair HerreraRn) DIANE Pinto Service: ? [...] Signed By: Clair Pinto RN In Department: [facility] SURGERY Normal [facility] Wound Culture/Stainon 2019 Wound Culture/Stain Sp. Request/Comment: - Specimen received in anaerobic transport medium. Smear Result - Rare Gram negative bacilli --> ABNORMAL ALERT Few Polymorphonuclear leukocytes Culture Result - Rare enteric cas Critically abnormal [facility] Comment on above: Performed By: #### W CUL ####[facility] [place], [place] [phone] ANES POSTPROC EVALon 020 ANES POSTPROC EVAL HNO ID: [id number] Author: Yg Cook Service: ? Author Type: [...] March 29, 2020 TIME: 2:57 PM CSN: [id number] [facility] ANES PRE-OPon 03-29-2020 ANES PRE-OP HNO ID: [id number] Author: Yg Cook Service: ? Author Type: [...] March 29, 2020 TIME: 12:44 PM CSN: [id number] [facility] OPERATIVE NOon 03-29-2020 OPERATIVE NO HNO ID: [id number] Author: Danny Oseguera Jr. Service: General Surgery Author Type: Physician Type: Operative Report Filed: 03/30/2020 9:01 AM Note Text: OPERATIVE/PROCEDURE REPORT LOG ID: [id number] SURGERY/PROCEDURE DATE: 03/29/2020 INCISION/PROCEDURE START TIME: 12:08 PM INCISION CLOSE/PROCEDURE END TIME: 12:42 PM SURGEON(S)/PROCEDURAL IST(S) AND UNDERCUTTER OPERATOR(S): Surgeon(s) and Role: * Danny Oseguera Jr. - Primary Physician Assembler Flexible Leads: Tarah Mackenzie (Pa) SURGERY/PROCEDURE(S): Intraoperative colonoscopy Anal [...] 29, 2020 TIME: 12:52 PM PAGER/CONTACT #: [facility] 03-29-2020 PT ED HNO ID: [id number] Author: Saniya HerreraRnWhit Benson RN Service: Nursing [...] By: Saniya Benson RN In Department: PROCEDURES [facility] PT ED HNO ID: [id number] Author: Tova HerreraRnWhit Dee RN Service: ? [...] Signed By: Tova Dee RN In Department: [facility] SURGERY [facility] ED HNO ID: [id number] Author: Tova HerreraRnWhit Dee RN Service: ? [...] Signed By: Tova Dee RN In Department: [facility] SURGERY Normal [facility] NURSING PROGon 03-16-2020 NURSING PROG HNO ID: [id number] Author: Parmjit (Rn) Ar RN Service: Nursing [...] RN March 16, 2020 2:43 PM Normal [facility] HOSPon 03-04-2020 HOSP Patient:Rusty Cueva MRN: Height:5' [...] 45.0 % 03/19/2020 51.0 39.0 Progress Notes ([facility]): Marcel Ivelisse 03/08/2020 11:17 AM Signed [facility] FACTS LAB HOURS: [facility] is open from 7:30am to 6pm M-, open from 7:30am-5pm on Sunday and open 8am-12pm on Sunday. Closed on Sunday [facility] [employer] lab is open from 7:30am to 5pm [...] 24 hours prior to the scheduled exam. [facility] Express Care -- No appointment needed At the Express [facility], patients 2 years and older can get walk-in medical attention for common health problems including: Cold and flu symptoms Conjunctivitis Ear and throat infections Minor bumps and cuts Seasonal allergies Skin rashes Simple sprains and strains Sinus infections Urinary tract infections Upper respiratory tract infections Locations and Times [facility] - [address] [place] [address] - [address] [place] [address] - Sunday through Sunday 6 AM - 9 PM - Sunday and Sunday 8 AM - 4 PM For Express Care LOCATIONS, HOURS OF OPERATION and CURRENT WAIT TIMES, visit the following link for details. [email or web address] R[types][0]=Express%2 0Care%20ClinicsAND Emergency Department [facility] - [address] [facility] [address]), [facility] [phone] Pharmacy Hours: Sunday through Sunday 8 am to 6 pm Opt in to receive text reminders for your appointments with [facility] health specialist today. To opt in, text [phone] to [phone]. My Chart Schedule My Appointment enables you to view your established primary care provider's open schedule and book an appointment online in real-time. This feature is available in internal medicine, family medicine, or pediatrics at any of our [facility] locations and main campus. Abigail Joe MD 03/08/2020 12:50 PM Signed COMPREHENSIVE PROBLEM EVALUATION Rusty Cueva is a 34 year old male who presents for comprehensive problem evaluation. New concerns today include for preventive care, last seen for physical 03/04/19 by PATTERN ILLUSTRATOR, recent visits with PATTERN ILLUSTRATOR for rectal bleeding/pain and planned for surgery [...] Coronary Artery Disease Maternal Grandfather Age 64 [place] Social History Tobacco Use - Smoking status: [...] 6m follow-up. Abigail Joe MD Progress Notes ([facility]): Mayra Lange Coord 03/02/2020 3:54 PM Signed Mayra Lange Coord 03/03/2020 2:00 PM Signed Tried calling patientjonatan to return my call at [phone] option 5 to schedule surgery with Dr Oseguera. Mayra Lange Coord 03/04/2020 9:37 AM Signed 2nd attempt, Tried calling patientjonatan to return my call at [phone] option 5. Mayra Lange Coord 03/04/2020 11:19 AM Signed Patient called back, surgery scheduled for 03/29/[address] Oseguera in [place], discuss with patient covid testing is a requirement and has to be done 3 days prior to surgery. Dr Oseguera or PA, please place covid order. PACC, patient is asking to have a virtual visit instead of in person visit, please advise. Thank you. Terese Lane PA-C 03/04/2020 11:41 AM Signed Order placed in [facility]. Dr. Oseguera already discussed risks of COVID entering HC facility in [place]. Called patient and advised of testing and advised to self-quarantine after testing completed until after his surgery. Patient verbalized an understanding. Normal [facility] Angiotens. Conv Enzon 2016 Angiotens. Conv Enz 22 U/L Normal <52 [facility] Comment on above: Result Comment: Delilah ficially low PEEWEE levels may be found for patients taking PEEWEE inhibitors or after the administration of gadolinium. Performed By: #### H INDERJIT JONR, PEEWEE ####[facility] [address] [place], [place] [phone] Hepatic Functn Panelon 08-15 Alanine aminotransferase (ALT) 37 U/L Normal 10-54 [facility] Comment on above: Performed By: #### H DONTRELL WSR, PEEWEE ####[facility] [address] [place], [place] [phone] Albumin 4.8 g/dL Normal 3.9-4.9 [facility] Comment on above: Performed By: #### H DONTRELL, WSR, PEEWEE ####[facility] [address] [place], [place] [phone] Alkaline phosphatase (ALP) 61 U/L Normal 36-108 [facility] Comment on above: Performed By: #### H DONTRELL WSR, PEEWEE ####[facility], [place] [phone] Aspartate aminotransferase (AST) 28 U/L Normal 14-40 [facility] Comment on above: Performed By: #### H FP, WSR, PEEWEE ####[facility], [place] [phone] Bilirubin (total) 0.8 mg/dL Normal 0.2-1.3 [facility] Comment on above: Performed By: #### H FP, WSR, PEEWEE ####[place] [address] [phone] Bilirubin,Conjugated 0.2 mg/dL High <0.2 [facility] Comment on above: Performed By: #### H FP, WSR, PEEWEE ####[place] [address] [phone] Protein 7.2 g/dL Normal 6.3-8.0 [facility] Comment on above: Performed By: #### H FP, WSR, PEEWEE ####[place] [address], [place] [phone] Sed Rate Westergrenon 2016 Sed Rate Westergren 2 mm/hr Normal 0-15 [facility] Comment on above: Performed By: #### H FP, WSR, PEEWEE ####[place] [address], [place] [phone] XR CHEST 2V FRONTAL/LATon XR CHEST 2V [...] RIVER MD on Aug 15 2017 12:01PM [id number] Normal [facility] Encounters Encounter Date Encounter Type Care Provider Facility Start: 03-05-2025 End: 03-05-[address] Farshad Garrett MD Work Phone: [facility] Work Phone: Start: 03-05-2025 End: 03-05-[address] Farshad Garrett MD -Laboratory [facility] Start: 03-05-2025 End: 03-05-2025 ambulatory Farshad Garrett Facility:[facility] Start: 08-25-2024 End: 08-25-2024 ambulatory Farshad Garrett Facility:[facility] Start: 11-02-2023 End: 11-02-[address] [facility] Work Phone: Start: 11-02-2023 End: 11-02-2023 Patient encounter procedure [facility] Start: 12-27-2022 End: 12-27-[address] [facility] Work Phone: Start: 12-27-2022 End: 12-27-2022 Patient encounter procedure [facility] Start: 01-23-2022 End: 01-23-2022 Patient encounter procedure [facility] Start: 08-15-2017 Ambulatory ZHANNA Borges FLOR [facility] Payers Date Payer Category Payer Self-pay [id number] 2024 Unknown [id number] Private Health Insurance [id number] Unknown [id number] Unknown [id number] Unknown [id number] Social History Date Type Detail Facility [facility] Work Phone: Start: 1985 Sex Assigned At Male W [facility] Tobacco smoking stat [facility] Unknown if ever smoked [facility] Work Phone: Progress note 2021 Note Date & Type Note Facility 2021 Note HNO ID: [id number] Author: Alla Gastelum APRN.PATTERN ILLUSTRATOR Service: ? Author Type: Nurse Practitioner Type: Progress Notes Filed: 2021 9:12 AM Note Text: Subjective The history is provided by the patient. No language and literature division chair was used. HPI Rusty Cueva is a [...] have confirmed and edited as necessary, the [facility] Review of Systems Constitutional: Negative for [...] detail warranting prompt ER evaluation. Alla Gastelum APRN.[facility] Evaluation note Note Date & Type Note Facility Evaluation note No assessment information availa [facility] Work Phone: Reason for referral (narrative) Note Date & Type Note Facility Reason for referral (narrative) No reason for referral information available [facility] Work Phone: Summary Purpose Family History No Family History Records FoundNo Family History Records FoundNo Family History Records FoundNo Family History Records Found Advance Directives No Advanced Directives Records FoundNo Advanced Directives Records FoundNo Advanced Directives Records FoundNo Advanced Directives Records Found Procedure Findings Note HNO ID: [id number] Author: Jenni Bond Service: ? Author Type: Nurse Electrotyper Helper Type: Anesthesia Procedure Notes Filed: 03/29/2020 12:12 PM Note Text: ANESTHESIOLOGY PROCEDURE NOTE Airway General Information Procedure Start Time/Medication Administration: 03/29/2020 11:54 AM Patient location during procedure: OR Staffing SCRATCHER: Britta Bond Performed by: KAYLEY Indications and [...] (more content not included)... Note HNO ID: [id number] Author: Zuleika Oseguera Jr. Service: General Surgery Author Type: Physician Type: Brief Op Note Filed: 03/29/2020 12:52 PM Note Text: BRIEF OPERATIVE / PROCEDURE NOTE LOG ID: [id number] SURGERY/PROCEDURE DATE: 03/29/2020 INCISION/PROCEDURE START TIME: 12:08 PM INCISION CLOSE/PROCEDURE END TIME: 12:42 PM SURGEON(S)/PROCEDURALIST(S) AND UNDERCUTTER OPERATOR(S): Surgeon(s) and Role: * Danny Oseguera Jr. - Primary Physician Assembler Flexible Leads: Tarah Mackenzie (Pa) SURGERY/PROCEDURE(S): intraoperative colonoscopy, anal [...] (more content not included)... Note HNO ID: [id number] Author: Mandeep Shultz Service: ? Author Type: Nurse Electrotyper Helper Type: Anesthesia Procedure Notes Filed: 04/13/2020 1:46 PM Note Text: ANESTHESIOLOGY PROCEDURE NOTE Airway General Information Patient location during procedure: OR Staffing SCRATCHER: Dede Shultz Performed by: KAYLEY Indications and [...] April 13, 2020 TIME: 1:46 PM CSN: [id number] Note HNO ID: [id number] Author: Zuleika Oseguera Jr. Service: General Surgery Author Type: Physician Type: Brief Op Note Filed: 04/13/2020 2:04 PM Note Text: BRIEF OPERATIVE / PROCEDURE NOTE LOG ID: [id number] SURGERY/PROCEDURE DATE: 04/13/2020 INCISION/PROCEDURE START TIME: 1:48 PM INCISION CLOSE/PROCEDURE END TIME: 1:58 PM SURGEON(S)/PROCEDURALIST(S) AND UNDERCUTTER OPERATOR(S): Surgeon(s) and Role: * Danny Oseguera Jr. - Primary Physician Assembler Flexible Leads: Navya Roman (Pa) SURGERY/PROCEDURE(S): incision and drainage [...] section and content) DATE CREATED AUTHOR 04/02/2018 [facility] DATE CREATED AUTHOR AUTHOR'S ORGANIZ ATION 04/25/2020 [facility] DATE CREATED AUTHOR AUTHOR'S ORGANIZ ATION 10/24/2021 [facility] DATE CREATED AUTHOR AUTHOR'S ORGANIZ ATION 03/11/2025 [facility] Goals (unrecognized section and content) Goals [...] Inactive Member Role Status Dates Dr. Farshad Garertt MD Primary Care Provi amadou, Attending Provider, [...] BE BASED ON THE PRIMARY CLINICAL RECORDS. [facility] [employer] provides no warranty or guarantee of the accuracy or completeness of information in this document.
--- NOTE | 2025-03-22 23:00 | PCM.HP.STD ---
HPI - General HPI Narrative BLADE CUEVA, is a 40 M who presents after eating steak this evening which got stuck in his esophagus. He reports that he is not able to swallow his secretions. He says that he has borderline dysphagia at baseline. He has never gotten any food stuck that has required EGD. [facility] Medical History (Updated 03/22/25 @ 22:[address] Devon Saravia, DO) Hypercholesterolemia Hypertension Home Medications ?Medication ?Instructions ?Recorded ?Last Taken ?Type losartan 100 mg tablet 100 mg PO DAILY 03/22/25 Unknown History rosuvastatin 5 mg tablet (Crestor) 5 mg PO DAILY 03/22/25 Unknown History Allergy/AdvReac Type Severity Reaction Status Date / Time No Known Allergies Allergy Verified 03/22/25 20:01 Surgical History (Updated 03/22/25 @ 22:29 by Judy Curtis) History of removal of cyst History of wisdom tooth extraction S/P anal fissurectomy Social History Smoking Status: Never smoker ROS Constitutional Constitutional: Denies anorexia, chills, fatigue or fever(s) Eyes Eyes: Denies blurry vision ENT HEENT: Denies abnormal hearing Cardiovascular Cardiovascular: Denies chest pain Respiratory/Chest Respiratory/Chest: Denies cough or dyspnea Gastrointestinal Gastrointestinal: Reports nausea and vomiting; Denies abdominal pain or constipation Musculoskeletal Musculoskeletal: Denies abnormal gait Integumentary Integumentary: Denies jaundice Neurologic Neurologic: Denies abnormal gait Vital Signs Vital Signs Vital Signs: 03/22/25 20:01 03/22/25 20:01 03/22/25 20:20 Temperature 97.4 F L Temperature Source Temporal Pulse Rate 91 88 Respiratory Rate 18 18 Respiratory Effort Normal Respiratory Pattern Normal Blood Pressure 152/100 H Blood Pressure Mean 117 Blood Pressure Source Blood Pressure Position Blood Pressure Location Pulse Ox 99 99 Oxygen Delivery Method Room Air 03/22/25 21:28 03/22/25 22:25 03/22/25 22:25 Temperature 97.4 F L Temperature Source Pulse Rate 89 93 95 Respiratory Rate 18 18 18 Respiratory Effort Respiratory Pattern Blood Pressure 148/113 H 148/113 H Blood Pressure Mean 124 124 Blood Pressure Source Blood Pressure Position Blood Pressure Location Pulse Ox 98 99 99 Oxygen Delivery Method Room Air Room Air 03/22/25 22:26 Temperature 98.8 F Temperature Source Oral Pulse Rate 89 Respiratory Rate 16 Respiratory Effort Respiratory Pattern Blood Pressure Blood Pressure Mean Blood Pressure Source Monitor Blood Pressure Position Semi-Fowlers Blood Pressure Location Right Arm Pulse Ox 99 Oxygen Delivery Method Room Air Weight Weight: 208 lb 14.4 oz Body Mass Index (BMI) 28.3 Physical Exam Const oriented x3 and no apparent distress Resp normal respiratory effort GI soft to palpation and non-tender Extremity normal to inspection Assessment & Plan Assessment/Plan (1) Esophageal obstruction due to food impaction: PLAN: The patient has esophageal impaction of food. I discussed performing an EGD. I discussed the procedure in detail as well as the risks including but limited to bleeding, infection, perforation, aspiration. Patient understands the risks and is willing to proceed. El Chavez MD Pager: [facility] [address] [place] [address], [address] [place] [address] Office:
--- NOTE | 2025-03-22 23:01 | PCM.PRE.AN2 ---
ASA Classification* ASA Classification ASA Classification: 2 Assessment & Plan Anesthesia* Anesthesia Assessment Anesthesia Assessment: Discussed sedation and/or anesthesia options, risks, benefits, and alternatives with patient/parents/legal guardian/POA. Questions invited. The patient/parents/legal guardian/POA seems to understand and agrees to proceed with anesthesia plan. Reviewed the physical assessment, medical history, allergy history and patient home medications list prior to surgery/procedure/anesthetic and documented any changes. Performed airway and anesthesia risk assessments. Anesthesia Type Anesthesia Type: MAC Anesthesia Focused Assessment* Temperature: 98.8 F Pulse Rate: 89 Blood Pressure: 148/113 Respiratory Rate: 16 Pulse Ox: 99 Airway Assessment Mouth opens: >3 cm Mallampati Score: II Labs Anesthesia Preop lab: CBC CHEMISTRY COAG Pre-Assessment Diagnosis/Proposed Procedure Planned Operative Procedure(s): EGD Remove Food Bolus Anesthesia History Anesthesia History - emergency medical technician/driver: Anesthesia History - emergency medical technician/driver Hx Hospitalization Any Problems With Anesthesia No 03/22/25 22:26 Cholinesterase deficiency No 03/22/25 22:26 You/Your Family Experience No 03/22/25 22:26 fever (hyperthermia) with Relationship Recent Exposure to Contagious No 03/22/25 22:26 Disease Does patient have nerve No 03/22/25 22:26 stimulator Patient instructed to have No 03/22/25 22:26 device shut off --Does patient have Pacemaker or ICD? When Was Last Pacemaker Check QUESTION #4 FULL TEXT: You/Your Family Experience fever (hyperthermia) with Anesthesia Last Oral Intake Last Oral intake: Last Oral Intake NPO since Meds taken in AM with sips of water? Meds patient instructed to take am of surgery PONV PONV - emergency medical technician/driver: PONV - emergency medical technician/driver Female HX of Motion Sickness HX of N/V After Surgery Non-Smoker Duration of Surgery greater than 60 minutes Number of Risk Factors PONV Score Height & Weight Height & Weight: Anesthesia: Height & Weight Height 6 ft 03/22/25 22:26 Weight: 94.755 kg 03/22/25 22:26 Body Mass Index (BMI) 28.3 03/22/25 22:26 Respiratory Assessment Respiratory Assessment - emergency medical technician/driver: Respiratory Tract Infection Hx - emergency medical technician/driver Hx Respiratory Tract Infection No 03/22/25 22:26 STOP Sleep Apnea STOP Sleep Apnea - emergency medical technician/driver: STOP Sleep Apnea - emergency medical technician/driver Hx Hypertension Yes 03/22/25 22:26 Hx Sleep Apnea Yes 03/22/25 22:26 CPAP No: REFUSES CPAP 03/22/25 22:26 BIPAP No 03/22/25 22:26 Do you snore loudly (louder than talking or can be heard Do you often feel tired/ fatigued/ sleepy during daytime? Has anyone observed you stop breathing during sleep? STOP Results Positive 03/22/25 22:26 QUESTION #5 FULL TEXT : Do you snore loudly (louder than talking or can be heard through closed doors)? 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 Specify any problems Hx of Preganancy in last 3 Months Nurse Filling Out Transfusion & Questions: Date: Time: Patient unable to answer at this time (ie. confused, unrespo /Reproduction History /Reproductive History - emergency medical technician/driver: /Reproductive Hx- emergency medical technician/driver Hx Now No 03/22/25 22:26 Gestational Age (in weeks): EDC: Hx Hx Para Hx Section SAB No 03/22/25 22:26 [facility] Medical History Hypercholesterolemia Hypertension Home Medications ?Medication ?Instructions ?Recorded ?Last Taken ?Type losartan 100 mg tablet 100 mg PO DAILY 03/22/25 Unknown History rosuvastatin 5 mg tablet (Crestor) 5 mg PO DAILY 03/22/25 Unknown History Allergy/AdvReac Type Severity Reaction Status Date / Time No Known Allergies Allergy Verified 03/22/25 20:01 Surgical History History of removal of cyst History of wisdom tooth extraction S/P anal fissurectomy Social History Smoking Status: Never smoker Review of Systems (Anesthesia) ROS Narrative System reviewed and no additional complaints, except as documented.
--- NOTE | 2025-03-22 23:20 | PCM.OPRPT ---
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 After bite-block was placed a well-lubricated EGD scope was placed into the mouth and down into the esophagus. The esophageal food impaction was evident at the GE junction. I was able to push the food through into the stomach. There was a area of stenosis at the GE junction. It appeared intrinsic and benign. The patient stomach was suctioned and the scope was removed. Patient was taken to PACU in stable condition. Surgical Findings: Impacted steak Complications Complications: No Admit VTE Documentation VTE Mechan Device Prophylaxis: SCD's
--- NOTE | 2025-03-22 23:22 | DCINST_ITS ---
Discharge Instructions Diet Discharge Diet: Soft diet (For 2 to 3 days) Activity Discharge Activity: Return to Normal Activity Dressing / Incision Call your doctor if your incision/area has: Increased Pain/ Swelling Call your doctor if you observe: Fever of 101 or Higher and Chest pain Follow Up Care Please Follow Up With: El Chavez MD When: Please call to schedule 2 week follow up appointment. [phone] Test Results: Test results from this visit will be discussed in further detail at your follow- up appointment, if applicable. Discharge Plan Admission Attending Provider: El Chavez Primary Care Provider: Farshad Garrett Instructions Print Language: Indonesian Discharge Orders/Prescriptions Prescriptions: No Action losartan 100 mg tablet 100 mg PO DAILY rosuvastatin [Crestor] 5 mg tablet 5 mg PO DAILY Referrals / Follow Up: Farshad Garrett MD [Primary Care Provider] - Disposition Disposition (needs filled in before D/C Order can be placed): Home, Self Care
--- NOTE | 2025-03-22 23:30 | PCM.POST.ANE ---
Anesthesia: Postop Eval I Current Vital Signs Temperature: 98 F Pulse Rate: 101 Blood Pressure: 131/86 Respiratory Rate: 16 Pulse Ox: 97 Oxygen Delivery Method: Room Air Assessment Airway patent: Yes Spontaneous unlabored respirations: Yes Mental status: Awake nausea: No Vomiting: No Anesthesia Complication: No Fluid Hydration Crystalloid volume administer (ml): 50 Total IV fluid infused: 50 Progress Note Anesthesia document: Postop Eval 1 completed: Yes
--- NOTE | 2025-03-22 23:32 | PCM.POSTANE2 ---
Anesthesia Postop Eval I Sum Postop Eval Completion status Anesthesia document: Postop Eval 1 completed: Yes Anesthesia Postop Eval I Summary Anesthesia Postop Eval I Summary: Anesthesia Postop Eval I: Assessment Summary Airway patent Yes 03/22/25 23:31 Spontaneous unlabored Yes 03/22/25 23:31 respirations Mental status Awake 03/22/25 23:31 nausea No 03/22/25 23:31 Vomiting No 03/22/25 23:31 Anesthesia Postop Eval I: Fluid Summary Crystalloid volume administer 50 03/22/25 23:31 (ml) Colloids volume administered ( ml) Blood Product volume administered (ml) Total IV fluid infused 50 03/22/25 23:31 Anesthesia Postop Eval I: Summary Notes Anesthesia Complication No 03/22/25 23:31 Anesthesia Complication Comment: Post-operative progress note Anesthesia: Postop Eval II Evaluation Mental status: Awake and Calm Pain Level: 0 nausea: No Vomiting: No
== END 2025-03-22 23:59 | disposition home or self-care (01) ==
LOC: ED 21:34 → AC 22:09
PROVIDERS: Emergency Provider Emergency Medicine; PCP Family Medicine; Referring Provider Surgery; Visit Provider Surgery
PROC: 0DJ08ZZ Inspection of Upper Intestinal Tract, Via Natural or Artificial Opening Endoscopic (ICD-10-PCS; CPT 43235; principal; 2025-03-22 23:00)
DX: K22.2 Esophageal obstruction (principal); T18.108A Unspecified foreign body in esophagus causing other injury, initial encounter; I10 Essential (primary) hypertension; R13.10 Dysphagia, unspecified; E78.00 Pure hypercholesterolemia, unspecified; Z79.899 Other long term (current) drug therapy; X58.XXXA Exposure to other specified factors, initial encounter
CPT/HCPCS: 43247; 99284; A4216; J1610; J2405